=== PATIENT | female | born 2000 | race African-American/Black ===

== ENCOUNTER → 2023-01-27 14:05 | Outpatient (BNVA) | payer MEDICARE, BC, SELFPAY | PROVIDERS: Visit Provider Nurse Practitioner | DX: F90.9 Attention-deficit hyperactivity disorder, unspecified type (principal); F70 Mild intellectual disabilities; F06.30 Mood disorder due to known physiological condition, unspecified; F63.81 Intermittent explosive disorder | CPT/HCPCS: 80053; 80061; 80178; 81000; 84443; 85025 ==

== ENCOUNTER 2023-04-11 18:08 | Emergency (ER) | payer MEDICARE, OTHER, MEDICAID, SELFPAY ==
--- NOTE | 2023-04-11 18:46 | W.ED.PSYCHS ---
HPI - Psych General: Chief Complaint: Psychiatric Symptoms Stated Complaint: PSYCH EVAL Time Seen by Provider: 04/11/23 18:16 Source: patient Limitations: no limitations History of Present Illness: 22-year-old female has a history of intellectual disability lives at a correction she states that she got upset and ran away went to gas station please were called brought her here for psych eval I spoke to care staff and patient she is calm now she never had any suicidal or homicidal ideations she states she just got upset and ran away. Patient's been calm and cooperative here. 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, unspecified Nocturnal enuresis On Depo-Provera for contraception Surgical History No history of previous surgery Family History Father Cancer Mother Diabetes Hypertension Denies family history of Stroke Social History Smoking and tobacco status: never smoked Second hand smoke exposure: No Smoking risk assessment/counseling performed?: No Alcohol intake: never Desire information about alcohol rehabilitation?: No Counseling given: No Substance/Drug Use: never Desire information about substance/drug rehabilitation?: No Counseling given: No Adopted: No Caregiver/support person: Yes Lives independently: No Household members: caregiver Housing: House Marital status: Single Number of children: 0 Highest education level completed: High School Graduate service: No Current occupational status: disabled Pets and animals: Yes Pets & animal details: Chickens Current gender identity: Female Physical Exam Const: COMMON NORMALS: no acute distress HENMT: COMMON NORMALS: normocephalic and atraumatic HEAD & SCALP: normocephalic and atraumatic Eye: COMMON NORMALS: Equal, round and reactive pupils present and EOMs intact bilaterally PUPIL: Yes Equal, round and reactive pupils present Neck/C-Spine: COMMON NORMALS: full ROM and supple Chest: COMMONS NORMALS: normal inspection of the chest Resp: COMMON NORMALS: normal respiratory effort Cardio: COMMON NORMALS: regular rate, regular rhythm and No murmurs present (Cardio) RATE: regular rate RHYTHM: regular rhythm GI: COMMON NORMALS: Normal to inspection, nondistended, normoactive bowel sounds present, Soft to palpation, non-tender and no masses PALPATION: Yes Soft to palpation Extremity: COMMON NORMALS: normal to inspection and full ROM Neuro: COMMON NORMALS: moves all extremities and no focal motor deficits Psych: COMMON NORMALS: mental status grossly normal, Normal thought process present and cooperative THOUGHT PROCESS: Normal thought process present Skin: COMMON NORMALS: no rashes or lesions noted and no wounds GENERAL SKIN EXAM: no rashes or lesions noted Course Vital Signs: Vital signs: Vital Signs Pulse Rate 83 04/11/23 18:49 Respiratory Rate 18 04/11/23 18:49 Pulse Oximetry 99 04/11/23 18:49 Oxygen Delivery Me thod Room Air 04/11/23 18:49 MDM - Psych Medical Decision Making Patient presents here after she had ran away and spoke to the care Discharge Plan Discharge Patient Disposition: Home Clinical Impression: Outbursts of anger Condition: Stable Prescriptions: No Action icosapent ethyl [Vascepa] 1 gram capsule 2 g PO BID Qty: 120 5RF desmopressin 0.1 mg tablet 0.1 mg PO BEDTIME Qty: 30 2RF lithium carbonate 300 mg tablet 300 mg PO BID polyethylene glycol 3350 17 gram powder in packet 17 g PO DAILY propranolol 10 mg tablet 10 mg PO TID divalproex 500 mg tablet extended release 24 hr 500 mg PO BID levothyroxine 150 mcg tablet 150 mcg PO DAILY Qty: 30 5RF cetirizine 10 mg tablet 10 mg PO DAILY Qty: 30 5RF quetiapine 200 mg tablet 200 mg PO .at bedtime fluoxetine 40 mg capsule 40 mg PO .in AM desog-e.estradiol/e.estradiol [Mircette (28)] 0.15-0.02 mgx21 /0.01 mg x 5 tablet 1 tab PO .at bedtime Qty: 28 2RF Discharge Orders: Discharge ED (Routine); Ordered 04/11/23 Ordered By: Glenna Sanz Referrals: Raciel Astudillo, [employer]ELOPER[employer] [Primary Care Provider] - Discharge Diet: Advance as tolerated Discharge Activity: Resume usual activity Patient Instructions: Depression (ED) Coding Level of Care Code ED Veneer Puller for Rebeca Jaeger
[2023-04-11 18:49] VITALS: PULSE 83; RESP 18; O2SAT 99
[2023-04-11] MEDS: LORazepam 1 mg Tablet PO (19:18)
== END 2023-04-11 19:19 | disposition home or self-care (01) ==
PROVIDERS: Emergency Provider Emergency Medicine; PCP Nurse Practitioner
DX: R45.4 Irritability and anger (principal)
CPT/HCPCS: 99283

== ENCOUNTER → 2023-07-14 13:59 | Outpatient (BNVA) | payer MEDICARE, OTHER, MEDICAID, SELFPAY | PROVIDERS: PCP Nurse Practitioner; Visit Provider Nurse Practitioner | DX: E03.9 Hypothyroidism, unspecified (principal); E55.9 Vitamin D deficiency, unspecified; Z12.4 Encounter for screening for malignant neoplasm of cervix | CPT/HCPCS: 80053; 80061; 82306; 84443; 88175 ==

== ENCOUNTER → 2023-08-18 15:45 | Outpatient (BNVA) | payer MEDICARE, OTHER, MEDICAID, SELFPAY | PROVIDERS: PCP Nurse Practitioner; Visit Provider Nurse Practitioner | DX: F33.9 Major depressive disorder, recurrent, unspecified (principal); F06.30 Mood disorder due to known physiological condition, unspecified | CPT/HCPCS: 80164; 80178 ==

== ENCOUNTER 2023-11-16 12:34 | Inpatient (IN) | payer MEDICARE, MEDICAID, SELFPAY ==
[2023-11-16 12:37] VITALS: BMI 37.8
[2023-11-16 12:38] VITALS: BP 152/72; PULSE 66; RESP 16; TEMP 37.1; O2SAT 98
--- NOTE | 2023-11-16 12:44 | PC.NURSE ---
just rec'd patient in room
--- NOTE | 2023-11-16 12:51 | PC.PHAR ---
PT STATES SHE DID TAKE MEDICATION TODAY, SHE JUST HAS NO IDEA WHAT SHE TAKES. PHONED THE PHARMACY [facility] AND THEY VERIFIED ALL MEDICATIONS PT CURRENTLY TAKES. 11/16/23
[2023-11-16 12:52] LABS: Basophils % 0.2 %; Eosinophils # 0.1 10^3/uL (0.0-0.8); Eosinophils % 1.5 %; Hematocrit 39.2 % (36-47); Lymphocytes # 2.8 10^3/uL (0.8-4.8); Lymphocytes % 34.3 %; Mean Corpuscular HGB Conc 31.6 g/dL (30-55); Mean Corpuscular Hemoglobin 30.7 pg (27-33); Mean Platelet Volume 10.1 fL (7.4-10.4); Monocytes # 0.5 10^3/uL (0.2-0.9); Monocytes % 6.2 %; Neutrophils # 4.66 10^3/uL (1.8-7.7); Neutrophils % 57.4 %; Nucleated Red Blood Cells % 0 %; Platelet Count 245 10^3/cmm (157-399); Red Blood Count 4.04 10^6/uL (3.85-5.65); Red Cell Distribution Width 13.5 % (12.1-15.1); White Blood Count 8.11 10^3/uL (3.29-11.43)
[2023-11-16 13:15] LABS: Valproic Acid Level 67.8 ug/mL (50-100)
[2023-11-16 13:18] LABS: Lithium 1.4 mmol/L (0.6-1.2)
[2023-11-16 13:27] LABS: Acetaminophen < 5.0 ug/mL (10-30); Alanine Aminotransferase 7 U/L (0-33); Albumin Level 3.9 g/dL (3.5-5.2); Alcohol Level < 10 mg/dL (0-10); Alkaline Phosphatase 69 U/L (35-105); Aspartate Amino Transferase 13 U/L (0-32); Blood Urea Nitrogen 9 mg/dL (6-20); Calcium 10.1 mg/dL (8.5-10.5); Carbon Dioxide 24 mmol/L (22-29); Chloride 106 mmol/L (98-107); Creatinine Clr Calc Pharmacy 170.3066; Globulin 3.9 g/dL (1.3-4.6); Glomerular Filtration Rate 152.7 mL/min (90-130); Glucose 99 mg/dL (65-115); Osmolality Calculated 287 mOsm/kg (285-295); Salicylate < 0.3 mg/dL (3-10); Sodium 139 mmol/L (136-145); Thyroid Stimulating Hormone 1.85 uIU/mL (0.27-4.20); Total Bilirubin 0.2 mg/dL (0.15-1.2); Total Protein 7.8 g/dL (6.6-8.7)
[2023-11-16 13:39] LABS: Add Urine Culture? No; Add Urine Microscopic? YES; Bacteria Urine TRACE /hpf; Bilirubin Urine Neg (Negative); Blood Urine 3+ (Negative); Glucose Urine UA Norm (Normal); HCG Qualitative Urine. Negative (Negative); Ketones Urine Negative (Negative); Leukocyte Esterase Urine Negative (Negative); Nitrate Urine Negative (Negative); Protein Urine Neg (Negative); RBC Urine 0-4 /hpf (0-2); Specific Gravity, Urine 1.005 (1.005-1.030); Urine Appearance Clear (CLEAR); Urine Color Yellow (Yellow); Urobilinogen Urine Norm (Negative); WBC Urine 0-4 /hpf (0-5); pH Urine 7 (5-7)
[2023-11-16 13:40] LABS: Amphetamines Screen Urine Negative (Negative); Barbiturates Screen Urine Negative (Negative); Benzodiazepines Screen Urine Positive (Negative); Cocaine Screen Urine Negative (Negative); Opiate Screen Urine Negative (Negative); PCP Screen Urine Negative (Negative); THC Screen Urine Negative (Negative)
--- NOTE | 2023-11-16 13:55 | W.ED.PSYCHS ---
HPI - Psych General: Chief Complaint: Psychiatric Symptoms Stated Complaint: psych eval Time Seen by Provider: 11/16/23 12:35 History of Present Illness: Patient brought here by Seferino GONZALEZ for anger issues and wanting to harm other people. Patient states that someone in her facility was calling her slow and being mean to her and that she told him she wanted to hurt him or kill him. Patient is pleasant does not appear agitated or aggressive at this time. Upon talking to patient's caregiver he told the moderately different story that he did say that someone was picking on her and that she did say she wanted to hurt or kill him but then he went beyond that and said that she was not following the rules of the facility she went in his locker and the staff area and stole his lunch and then proceeded to elope and when he confronted her she was aggressive toward him and told him that he wanted to kill everybody and did not care if she herself and then she proceeded to go out in the middle of the road and sit down and was waiting to be run over. He said the vehicle leasing and rental manager there wanted her to be 96-hour held inpatient and treated. Patient is a resident of [facility] Review of Systems General: Reports: 10 or more systems reviewed and unremarkable except in HPI and below PFSH ED PFSH: Medical History Nocturnal enuresis Hypothyroid Mood disorder due to known physiological condition, unspecified Intermittent explosive disorder Mild intellectual disabilities On Depo-Provera for contraception Environmental and seasonal allergies ADHD (attention deficit hyperactivity disorder) Surgical History No history of previous surgery Family History Father Cancer Mother Diabetes Hypertension Denies family history of Stroke Social History Smoking and tobacco/nicotine status: never used tobacco/nicotine Second hand smoke exposure: No Alcohol intake: never Substance/Drug Use: never Adopted: No Caregiver/support person: Yes Lives independently: No Household members: caregiver Housing: House Marital status: Single Number of children: 0 Highest education level completed: High School Graduate service: No Current occupational status: disabled Pets and animals: Yes Pets & animal details: Chickens Current gender identity: Female Physical Exam Const: COMMON NORMALS: no acute distress, average body habitus, patient oriented x3, no limitations, healthy appearing, alert and well nourished HENMT: COMMON NORMALS: normocephalic, atraumatic, hearing grossly normal bilaterally, external ears normal, Normal external nose present, moist oral mucous membranes and oropharynx normal HEAD & SCALP: normocephalic and atraumatic NOSE: Normal external nose present EXTERNAL EAR: Yes external ears normal Neck/C-Spine: COMMON NORMALS: no JVD Chest: COMMONS NORMALS: normal inspection of the chest and normal palpation of entire chest wall Resp: COMMON NORMALS: normal respiratory effort, No retractions, No use of accessory muscles and clear to auscultation bilaterally AUSCULTATION: clear to auscultation bilaterally Cardio: COMMON NORMALS: no JVD, regular rate, regular rhythm, S1 normal heart sound present, S2 normal heart sound present, No gallops present (Cardio), No clicks present (Cardio), No murmurs present (Cardio) and No rub (Cardio) RATE: regular rate RHYTHM: regular rhythm HEART SOUNDS: S1 normal heart sound present and S2 normal heart sound present GI: COMMON NORMALS: Normal to inspection, nondistended, normoactive bowel sounds present, Soft to palpation, non-tender, No hepatosplenomegaly present and no masses PALPATION: Yes Soft to palpation and Yes No hepatosplenomegaly present Neuro: COMMON NORMALS: patient oriented x3 SENSORIUM/ORIENTATION: Yes alert Course Vital Signs: Vital signs: Vital Signs Temperature 98.7 F 11/16/23 12:38 Pulse Rate 66 11/16/23 12:38 Respiratory Rate 16 11/16/23 12:38 Blood Pressure 152/72 11/16/23 12:38 Pulse Oximetry 98 11/16/23 12:38 Oxygen Delivery Me thod Room Air 11/16/23 12:38 MDM - Psych Medical Decision Making Patient was cleared for medical process. Dr. Rodríguez was consulted. He agreed to place patient in [facility] for further evaluation and treatment. Differential Diagnosis Likely suicidal ideation (Homicidal ideation); Unlikely acute psychosis, chronic schizophrenia, bipolar disorder, depression, drug-induced psychotic disorder or acute anxiety Medical Records I reviewed the patient's medical records. Lab Data I reviewed the patient's lab results. 11/16/23 12:43 03/11/24 12:43 Laboratory Results WBC 8.11 10^3/uL (3.29-11.43) 11/16/23 12:43 RBC 4.04 10^6/uL (3.85-5.65) 11/16/23 12:43 Hgb 12.40 g/dL (11.27-16.99) 11/16/23 12:43 Hct 39.2 % (36-47) 11/16/23 12:43 MCV 97.0 fl (85-98) 11/16/23 12:43 MCH 30.7 pg (27-33) 11/16/23 12:43 MCHC 31.6 g/dL (30-55) 11/16/23 12:43 RDW 13.5 % (12.1-15.1) 11/16/23 12:43 Plt Count 245 10^3/cmm (157-399) 11/16/23 12:43 MPV 10.1 fL (7.4-10.4) 11/16/23 12:43 Neut % (Auto) 57.4 % 11/16/23 12:43 Lymph % (Auto) 34.3 % 11/16/23 12:43 Evangeline % (Auto) 6.2 % 11/16/23 12:43 Eos % (Auto) 1.5 % 11/16/23 12:43 Baso % (Auto) 0.2 % 11/16/23 12:43 Neut # (Auto) 4.66 10^3/uL (1.8-7.7) 11/16/23 12:43 Lymph # (Auto) 2.8 10^3/uL (0.8-4.8) 11/16/23 12:43 Evangeline # (Auto) 0.5 10^3/uL (0.2-0.9) 11/16/23 12:43 Eos # (Auto) 0.1 10^3/uL (0.0-0.8) 11/16/23 12:43 Baso # (Auto) 0.0 10^3/uL (0.0-0.1) 11/16/23 12:43 Nucleated RBC % (auto) 0 % 11/16/23 12:43 Nucleated RBCs # 0.0 /100WBC 11/16/23 12:43 Sodium 139 mmol/L (136-145) 11/16/23 12:43 Potassium 5.0 mmol/L (3.5-5.1) 11/16/23 12:43 Chloride 106 mmol/L (98-107) 11/16/23 12:43 Carbon Dioxide 24 mmol/L (22-29) 11/16/23 12:43 Anion Gap 14.0 (5-19) 11/16/23 12:43 BUN 9 mg/dL (6-20) 11/16/23 12:43 Creatinine 0.6 mg/dL (0.5-0.9) 11/16/23 12:43 GFR Calculation 152.7 mL/min (90-130) H 11/16/23 12:43 Glucose 99 mg/dL (65-115) 11/16/23 12:43 Calculated Osmolality 287 mOsm/kg (285-295) 11/16/23 12:43 Calcium 10.1 mg/dL (8.5-10.5) 11/16/23 12:43 Total Bilirubin 0.2 mg/dL (0.15-1.2) 11/16/23 12:43 AST 13 U/L (0-32) 11/16/23 12:43 ALT 7 U/L (0-33) 11/16/23 12:43 Alkaline Phosphatase 69 U/L (35-105) 11/16/23 12:43 Total Protein 7.8 g/dL (6.6-8.7) 11/16/23 12:43 Albumin 3.9 g/dL (3.5-5.2) 11/16/23 12:43 Globulin 3.9 g/dL (1.3-4.6) 11/16/23 12:43 TSH 1.85 uIU/mL (0.27-4.20) 11/16/23 12:43 HCG, Qual Negative (Negative) 11/16/23 13:10 Urine Color Yellow (Yellow) 11/16/23 13:10 Urine Appearance Clear (CLEAR) 11/16/23 13:10 Urine pH 7 (5-7) 11/16/23 13:10 Ur Specific [place] 1.005 (1.005-1.030) 11/16/23 13:10 Urine Protein Neg (Negative) 11/16/23 13:10 Urine Glucose (UA) Norm (Normal) 11/16/23 13:10 Urine Ketones Negative (Negative) 11/16/23 13:10 Urine Blood 3+ (Negative) H 11/16/23 13:10 Urine Nitrate Negative (Negative) 11/16/23 13:10 Urine Bilirubin Neg (Negative) 11/16/23 13:10 Urine Urobilinogen Norm mg/dL (Negative) 11/16/23 13:10 Ur Leukocyte Esterase Negative (Negative) 11/16/23 13:10 Urine RBC 0-4 /hpf (0-2) H 11/16/23 13:10 Urine WBC 0-4 /hpf (0-5) H 11/16/23 13:10 Ur Squamous Epith Cells 5-10 /hpf (0-5) H 11/16/23 13:10 Amorphous Sediment Not Reportable 11/16/23 13:10 Urine Bacteria Trace /hpf (NONE) 11/16/23 13:10 Salicylates < 0.3 mg/dL (3-10) L 11/16/23 12:43 Urine Opiates Screen Negative ng/mL (Negative) 11/16/23 13:10 Acetaminophen < 5.0 ug/mL (10-30) L 11/16/23 12:43 Ur Barbiturates Screen Negative ng/mL (Negative) 11/16/23 13:10 Valproic Acid 67.8 ug/mL (50-100) 11/16/23 12:43 Ur Phencyclidine Scrn Negative ng/mL (Negative) 11/16/23 13:10 Ur Amphetamines Screen Negative ng/mL (Negative) 11/16/23 13:10 U Benzodiazepines Scrn Positive ng/mL (Negative) H 11/16/23 13:10 [place] 1.4 mmol/L (0.6-1.2) H 11/16/23 12:43 Urine Cocaine Screen Negative ng/mL (Negative) 11/16/23 13:10 U Marijuana (THC) Screen Negative ng/mL (Negative) 11/16/23 13:10 Ethyl Alcohol < 10 mg/dL (0-10) 11/16/23 12:43 No radiology studies performed this visit Discharge Plan Discharge Patient Disposition: Admitted As Inpatient Clinical Impression: Intermittent explosive disorder in adult, Mild intellectual disability, Homicidal ideations Condition: Stable Coding Level of Care Code ED Breaker Unit Assembler for Chg Fwd
[2023-11-16 16:56] VITALS: BP 139/81; PULSE 68; RESP 16; TEMP 36.7; O2SAT 98
[2023-11-16 17:09] VITALS: BP 131/85; PULSE 63; RESP 16; TEMP 36.5; O2SAT 100
[2023-11-16 20:21] VITALS: BP 128/81; PULSE 75; RESP 18; TEMP 36.8; O2SAT 96
[2023-11-16] MEDS: lithium carbonate 300 mg Capsule PO (21:36)
[2023-11-16] MEDS: quetiapine 100 mg Tablet 200 MG PO (21:36)
[2023-11-16] MEDS: divalproex ER 500 mg Tablet (24H) PO (21:36)
[2023-11-16] MEDS: propranolol 20 mg Tablet 10 MG PO (21:36)
[2023-11-17 06:00] VITALS: BP 115/74; PULSE 60; RESP 18; TEMP 36.3; O2SAT 100
[2023-11-17] MEDS: levothyroxine 150 mcg Tablet PO (08:25)
[2023-11-17] MEDS: propranolol 20 mg Tablet 10 MG PO ×3 (08:25→19:53)
[2023-11-17] MEDS: divalproex ER 500 mg Tablet (24H) PO ×2 (08:25→17:53)
[2023-11-17] MEDS: fluoxetine 20 mg Capsule 40 MG PO (08:26)
[2023-11-17] MEDS: docusate sodium 100 mg Capsule PO ×2 (08:26→17:53)
[2023-11-17] MEDS: cetirizine 10 mg Tablet PO (08:26)
[2023-11-17 10:40] LABS: Lithium 0.9 mmol/L (0.6-1.2)
[2023-11-17] MEDS: lithium carbonate 300 mg Capsule PO ×2 (11:09→17:53)
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
[2023-11-17 14:00] VITALS: BP 119/76; PULSE 72; RESP 16; TEMP 36.6; O2SAT 99
[2023-11-17] MEDS: quetiapine 100 mg Tablet 200 MG PO (19:54)
[2023-11-17 20:04] VITALS: BP 152/94; PULSE 76; RESP 18; TEMP 36.8; O2SAT 97
--- NOTE | 2023-11-18 06:51 | PC.NURSE ---
pt ref vs resp 18
[2023-11-18] MEDS: propranolol 20 mg Tablet 10 MG PO (07:50)
[2023-11-18] MEDS: docusate sodium 100 mg Capsule PO (07:50)
[2023-11-18] MEDS: levothyroxine 150 mcg Tablet PO (07:50)
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
[2023-11-18] MEDS: divalproex ER 500 mg Tablet (24H) PO (07:51)
[2023-11-18] MEDS: cetirizine 10 mg Tablet PO (07:51)
[2023-11-18] MEDS: fluoxetine 20 mg Capsule 40 MG PO (07:51)
[2023-11-18] MEDS: lithium carbonate 300 mg Capsule PO (07:51)
[2023-11-18 07:56] VITALS: BP 152/94; PULSE 76; RESP 18; TEMP 36.8; O2SAT 97
--- NOTE | 2023-11-18 08:22 | PC.NURSE ---
written discharge instruction discussed and left with teamleader Nelson they stated understanding and compliance. pt left in pov with ximena alatorre staff members.
== END 2023-11-18 08:25 | disposition home or self-care (01) | DRG 883 ==
LOC: ER 14:26 → NP 16:28
PROVIDERS: Admitting Provider Psychiatry & Neurology Psychiatry; Emergency Provider Emergency Medicine; PCP Nurse Practitioner; Visit Provider Psychiatry & Neurology Psychiatry
DX: F63.81 Intermittent explosive disorder (principal); F70 Mild intellectual disabilities; E03.9 Hypothyroidism, unspecified; F90.9 Attention-deficit hyperactivity disorder, unspecified type; E66.9 Obesity, unspecified; R45.850 Homicidal ideations; F06.30 Mood disorder due to known physiological condition, unspecified; N39.44 Nocturnal enuresis; Z79.3 Long term (current) use of hormonal contraceptives; Z68.37 Body mass index [BMI] 37.0-37.9, adult
CPT/HCPCS: 36415; 80053; 80164; 80178; 80306; 80307; 81001; 81025; 84443; 85025; 97150; 97165; 99285

== ENCOUNTER 2023-12-07 18:09 | Inpatient (IN) | payer MEDICARE, MEDICAID, SELFPAY ==
[2023-12-07 18:10] VITALS: BP 135/59; PULSE 73; TEMP 36.7; O2SAT 96
--- NOTE | 2023-12-07 18:28 | W.ED.PSYCHS ---
HPI - Psych General: Chief Complaint: Psychiatric Symptoms Stated Complaint: si/hi Time Seen by Provider: 12/07/23 18:11 Source: patient Mode of arrival: ambulatory Limitations: no limitations History of Present Illness: 23-year-old female who lives at a [facility] states she want to go to [facility] today and went to take her and she got upset. She had thoughts of hurting someone but states she feels much improved she denies any SI or HI currently she was admitted here 3 weeks ago. She has been calm and cooperative Associated symptoms: Deny depression Review of Systems Const: Denies: fever(s), chills, body aches or change in appetite Eyes: Denies: blurry vision or eye discomfort ENMT: Denies: throat pain or dental pain Card: Denies: chest pain Resp: Denies: dyspnea GI: Denies: abdominal pain, nausea, vomiting or diarrhea : Denies: dysuria Musc: Denies: neck pain or back pain Skin/Breast: Denies: rash Neuro: Denies: headache(s) Psych: Denies: depression Kai/Lymph: Denies: easy bruising All/Imm: Denies: urticaria PFSH ED PFSH: Medical History Nocturnal enuresis Hypothyroid Mood disorder due to known physiological condition, unspecified Intermittent explosive disorder Mild intellectual disabilities On Depo-Provera for contraception Environmental and seasonal allergies ADHD (attention deficit hyperactivity disorder) Surgical History No history of previous surgery Family History Father Cancer Mother Diabetes Hypertension Denies family history of Stroke Social History Smoking and tobacco/nicotine status: never used tobacco/nicotine Second hand smoke exposure: No Alcohol intake: never Substance/Drug Use: never Adopted: No Caregiver/support person: Yes Lives independently: No Household members: caregiver Housing: House Marital status: Single Number of children: 0 Highest education level completed: High School Graduate service: No Current occupational status: disabled Pets and animals: Yes Pets & animal details: Chickens Current gender identity: Female Physical Exam Const: COMMON NORMALS: no acute distress, patient oriented x3 and healthy appearing HENMT: COMMON NORMALS: normocephalic and atraumatic HEAD & SCALP: normocephalic and atraumatic Eye: COMMON NORMALS: conjunctivae normal CONJUNCTIVA: Yes conjunctivae normal Neck/C-Spine: COMMON NORMALS: full ROM and supple Chest: COMMONS NORMALS: normal inspection of the chest Resp: COMMON NORMALS: normal respiratory effort Cardio: COMMON NORMALS: regular rate, regular rhythm and No murmurs present (Cardio) RATE: regular rate RHYTHM: regular rhythm Extremity: COMMON NORMALS: normal to inspection and full ROM Neuro: COMMON NORMALS: patient oriented x3, moves all extremities and no focal motor deficits Psych: COMMON NORMALS: mental status grossly normal, Normal thought process present and cooperative THOUGHT PROCESS: Normal thought process present Skin: COMMON NORMALS: no rashes or lesions noted and no wounds GENERAL SKIN EXAM: no rashes or lesions noted Course Vital Signs: Vital signs: Vital Signs Temperature 98.0 F 12/07/23 18:10 Pulse Rate 73 12/07/23 18:10 Blood Pressure 135/59 12/07/23 18:10 Pulse Oximetry 96 12/07/23 18:10 Oxygen Delivery Me thod Room Air 12/07/23 18:10 MDM - Psych Medical Decision Making Patient presents here with anger outburst she is also had some depression and I did speak to Dr. Rodríguez will readmit at this time patient is medically cleared. Medical Records I reviewed the patient's medical records. No radiology studies performed this visit Discharge Plan Discharge Patient Disposition: Admitted As Inpatient Clinical Impression: Intermittent explosive disorder, Mild intellectual disability, Depression Condition: Stable Prescriptions: No Action lithium carbonate 300 mg tablet 300 mg PO BID propranolol 10 mg tablet 10 mg PO TID divalproex 500 mg tablet extended release 24 hr 500 mg PO BID quetiapine 200 mg tablet 200 mg PO .at bedtime fluoxetine 40 mg capsule 40 mg PO QAM cetirizine 10 mg tablet 10 mg PO DAILY Qty: 30 2RF desmopressin 0.2 mg tablet 0.2 mg PO BEDTIME Qty: 30 2RF desog-e.estradiol/e.estradiol 0.15-0.02 mgx21 /0.01 mg x 5 tablet 1 tab PO .at bedtime Qty: 28 2RF docusate sodium [Colace] 100 mg capsule 100 mg PO BID Qty: 60 2RF icosapent ethyl [Vascepa] 1 gram capsule 2 g PO BID Qty: 120 2RF levothyroxine 150 mcg tablet 150 mcg PO DAILY Qty: 30 2RF Discharge Orders: Discharge ED (Routine); Ordered 12/07/23 Ordered By: Glenna Sanz Referrals: Raciel Astudillo, RESHIPPING CLERK-C [Primary Care Provider] - 4-7 days Discharge Diet: Advance as tolerated Discharge Activity: Resume usual activity Patient Instructions: Depression (ED) Coding Level of Care Code ED Quality Improvement Coordinator (Rn) for Rebeca Jaeger
[2023-12-07] MEDS: LORazepam 1 mg Tablet PO (18:41)
[2023-12-07 19:11] LABS: Basophils % 0.3 %; Eosinophils # 0.3 10^3/uL (0.0-0.8); Eosinophils % 2.5 %; Hematocrit 37.5 % (36-47); Lymphocytes % 38.9 %; Mean Corpuscular HGB Conc 31.5 g/dL (30-55); Mean Corpuscular Hemoglobin 30.3 pg (27-33); Mean Corpuscular Volume 96.2 fl (85-98); Mean Platelet Volume 10.3 fL (7.4-10.4); Monocytes # 0.8 10^3/uL (0.2-0.9); Monocytes % 7.5 %; Neutrophils # 5.11 10^3/uL (1.8-7.7); Nucleated Red Blood Cells % 0 %; Platelet Count 265 10^3/cmm (157-399); Red Cell Distribution Width 13.5 % (12.1-15.1); White Blood Count 10.23 10^3/uL (3.29-11.43)
[2023-12-07 19:27] LABS: Alanine Aminotransferase < 5 U/L (0-33); Albumin Level 3.9 g/dL (3.5-5.2); Alkaline Phosphatase 71 U/L (35-105); Anion Gap 14.8 (5-19); Aspartate Amino Transferase 13 U/L (0-32); Blood Urea Nitrogen 10 mg/dL (6-20); Carbon Dioxide 22 mmol/L (22-29); Chloride 106 mmol/L (98-107); Globulin 3.7 g/dL (1.3-4.6); Glomerular Filtration Rate 152.7 mL/min (90-130); Glucose 98 mg/dL (65-115); Osmolality Calculated 287 mOsm/kg (285-295); Potassium 3.8 mmol/L (3.5-5.1); Sodium 139 mmol/L (136-145); Total Bilirubin 0.2 mg/dL (0.15-1.2); Total Protein 7.6 g/dL (6.6-8.7)
[2023-12-07 19:28] LABS: Acetaminophen < 5.0 ug/mL (10-30); Alcohol Level < 10 mg/dL (0-10); Salicylate < 0.3 mg/dL (3-10)
[2023-12-07 19:34] VITALS: BP 133/73; PULSE 70; RESP 17; TEMP 36.6; O2SAT 99
[2023-12-07 19:43] VITALS: PULSE 78; RESP 18; O2SAT 98
[2023-12-07 20:02] LABS: Amphetamines Screen Urine Negative (Negative); Barbiturates Screen Urine Negative (Negative); Benzodiazepines Screen Urine Positive (Negative); Cocaine Screen Urine Negative (Negative); Opiate Screen Urine Negative (Negative); PCP Screen Urine Negative (Negative); THC Screen Urine Negative (Negative)
[2023-12-07] MEDS: quetiapine 100 mg Tablet 200 MG PO (20:22)
[2023-12-07] MEDS: propranolol 20 mg Tablet 10 MG PO (20:22)
--- NOTE | 2023-12-07 20:40 | PC.NURSE ---
Admission Note pt arrived to [facility] at 1930 on a voluntary hold. Pt states that she is here because she was feeling suicidal and wrote a suicide note. She stated that he plan was to cut her wrists with a knife. Pt was not able to say why she was feeling this way but just stated that she has been feeling suicidal for a couple months. Upon admission pt denied SI/HI/AVH. Pt was dressed into [facility] scrubs, no skins issues noted. Pt is now observed watching TV in the [facility] dayroom. Behavioral monitoring continues
[2023-12-07 20:46] LABS: HCG Qualitative Urine. Negative (Negative)
[2023-12-07 22:00] VITALS: BP 133/73; PULSE 70; RESP 17; TEMP 36.6; O2SAT 99
[2023-12-08 06:00] VITALS: BP 129/78; PULSE 61; RESP 16; TEMP 36.6; O2SAT 97
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
[2023-12-08] MEDS: docusate sodium 100 mg Capsule PO ×2 (08:02→17:04)
[2023-12-08] MEDS: cetirizine 10 mg Tablet PO (08:02)
[2023-12-08] MEDS: lithium carbonate 150 mg Capsule 300 MG PO ×2 (08:02→17:03)
[2023-12-08] MEDS: propranolol 20 mg Tablet 10 MG PO ×3 (08:02→20:28)
[2023-12-08] MEDS: levothyroxine 150 mcg Tablet PO (08:02)
[2023-12-08] MEDS: divalproex ER 500 mg Tablet (24H) PO ×2 (08:02→17:03)
[2023-12-08] MEDS: fluoxetine 20 mg Capsule 40 MG PO (08:02)
--- NOTE | 2023-12-08 09:48 | PC.NURSE ---
AT AROUND 0900 STAFF PERFORMED RANDOM ROOM CHECKS FOR CONTRABAND. DURING THIS RANDOM CHECK NO CONTRABAND WAS FOUND IN PT ROOM. PT WAS COOPERATIVE WITH CHECK.
[2023-12-08 14:00] VITALS: BP 130/80; PULSE 80; RESP 16; TEMP 36.6; O2SAT 98
[2023-12-08 20:10] VITALS: BP 123/67; PULSE 72; RESP 16; O2SAT 100
[2023-12-08] MEDS: quetiapine 100 mg Tablet 200 MG PO (20:28)
[2023-12-09 06:00] VITALS: BP 147/98; PULSE 77; RESP 17; TEMP 36.7; O2SAT 100
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
[2023-12-09 07:43] VITALS: BP 147/98; PULSE 77; RESP 17; TEMP 36.7; O2SAT 100
[2023-12-09] MEDS: cetirizine 10 mg Tablet PO (08:08)
[2023-12-09] MEDS: propranolol 20 mg Tablet 10 MG PO (08:08)
[2023-12-09] MEDS: levothyroxine 150 mcg Tablet PO (08:09)
[2023-12-09] MEDS: divalproex ER 500 mg Tablet (24H) PO (08:09)
[2023-12-09] MEDS: lithium carbonate 150 mg Capsule 300 MG PO (08:09)
[2023-12-09] MEDS: docusate sodium 100 mg Capsule PO (08:09)
[2023-12-09] MEDS: fluoxetine 20 mg Capsule 40 MG PO (08:09)
== END 2023-12-09 08:36 | disposition home or self-care (01) | DRG 883 ==
LOC: ER 18:59 → NP 19:02
PROVIDERS: Admitting Provider Psychiatry & Neurology Psychiatry; Emergency Provider Emergency Medicine; PCP Nurse Practitioner; Visit Provider Psychiatry & Neurology Psychiatry
DX: F63.81 Intermittent explosive disorder (principal); F70 Mild intellectual disabilities; F90.9 Attention-deficit hyperactivity disorder, unspecified type; E03.9 Hypothyroidism, unspecified
CPT/HCPCS: 36415; 80053; 80306; 80307; 81025; 85025; 97150; 97165; 99285

== ENCOUNTER 2023-12-13 16:52 | Inpatient (IN) | payer MEDICARE, OTHER, MEDICAID, SELFPAY ==
[2023-12-13 16:59] VITALS: BMI 40.2
[2023-12-13 17:01] VITALS: BP 137/90; PULSE 76; RESP 16; TEMP 36.6; O2SAT 98
--- NOTE | 2023-12-13 17:12 | W.ED.PSYCHS ---
HPI - Psych General: Chief Complaint: Psychiatric Symptoms Stated Complaint: MHE Time Seen by Provider: 12/13/23 17:00 History of Present Illness: 23-year-old female presents to the emergency department via EMS personnel with complaints of feeling severely depressed and wanting to cause herself harm by cutting her wrist with pieces of glass. Patient states she was recently admitted to the behavioral health unit and was discharged on 12/10/23. Patient states that she is continued to have thoughts of harming herself and committing suicide by cutting her wrist. Patient did have several superficial cuts to her left forearm that she states came from using a small piece of glass because she feels that cutting herself keeps her from becoming more depressed. She states that today when she woke up she continued to have more intrusive thoughts of suicidal ideation and could not get the thoughts to go away which prompted her to call EMS. Patient does appear to have developmentally delayed cognition. Associated symptoms: Reports depression and suicidal ideation; Deny auditory hallucinations, visual hallucinations or homicidal ideation Review of Systems General: Reports: 10 or more systems reviewed and unremarkable except in HPI and below Skin/Breast: Reports: other (Superficial abrasions to the left forearm) Psych: Reports: depression and suicidal ideation; Denies: visual hallucinations, auditory hallucinations or homicidal ideation [facility] PFSH: Medical History Nocturnal enuresis Hypothyroid Mood disorder due to known physiological condition, unspecified Intermittent explosive disorder Mild intellectual disabilities On Depo-Provera for contraception Environmental and seasonal allergies ADHD (attention deficit hyperactivity disorder) Surgical History No history of previous surgery Family History Father Cancer Mother Diabetes Hypertension Denies family history of Stroke Social History Smoking and tobacco/nicotine status: never used tobacco/nicotine Second hand smoke exposure: No Alcohol intake: never Substance/Drug Use: never Adopted: No Caregiver/support person: Yes Lives independently: No Household members: caregiver Housing: House Marital status: Single Number of children: 0 Highest education level completed: High School Graduate service: No Current occupational status: disabled Pets and animals: Yes Pets & animal details: Chickens Current gender identity: Female Physical Exam Narrative: EXAM NARRATIVE: Constitutional: the patient appears well nourished and of normal development. Vital signs as documented. No acute distress at present. Alert and oriented-to person, place, time and situation. Head, eyes, ears, nose, mouth, throat: Normocephalic, atraumatic. Pupils-equal, round, reactive to light. No scleral icterus. Normal-appearing external ears. Normal appearing nasal turbinates, no drainage. No obvious oral lesions, posterior oropharynx without erythema or exudates. Neck: Supple, trachea is midline, no lymphadenopathy, no jugular venous distension, thyromegaly, or carotid bruits. Carotid upstrokes are brisk bilaterally. Lungs: clear to auscultation to all lung bullock. Symmetrical rise and fall of chest, no obvious signs of increased work of breathing at present. Cardiac: Regular rate and rhythm, positive S1, S2. No murmurs, rubs or gallops that I can appreciate Abdomen: Soft, non-tender to palpation, normal active bowel sounds to all quadrants. No palpable masses, no organomegaly and abdominal bruits. Extremities: 2+ pulses in the upper extremities that are equal bilaterally, 2+ pulses in the lower extremities that are equal bilaterally. Non-edematous. Moves all extremities well, sensation to all extremities are noted. Abrasions to the left forearm as noted. Skin: Warm, dry, multiple superficial abrasions to the left forearm. Neurological: Neurologically intact, she does appear to have cognitive developmental delay. No focal neurological deficits that I can appreciate at present cranial nerves II through XII are grossly intact. Psychiatric: Suicidal ideation, depression, Course Vital Signs: Vital signs: Vital Signs Temperature 97.7 F 12/13/23 20:21 Pulse Rate 68 12/13/23 20:21 Respiratory Rate 18 12/13/23 20:21 Blood Pressure 123/80 12/13/23 20:21 Pulse Oximetry 99 12/13/23 20:21 Oxygen Delivery Me thod Room Air 12/13/23 20:21 MDM - Psych Medical Decision Making Physical exam completed and documented I did obtain medical psychiatric clearance labs to include CBC, CMP, urinalysis, alcohol level, urine drug screen, salicylate and acetaminophen level as well as urine hCG. I did review the patient's previous medical records and recent discharge summary. I did contact the psychiatrist on-call to discuss the patient's case and request admission to the Neuropsych Unit. Medical Records I reviewed the patient's medical records. Lab Data I reviewed the patient's lab results. 12/13/23 17:55 12/13/23 17:55 Laboratory Results WBC 10.94 10^3/uL (3.29-11.43) 12/13/23 17:55 RBC 4.21 10^6/uL (3.85-5.65) 12/13/23 17:55 Hgb 12.70 g/dL (11.27-16.99) 12/13/23 17:55 Hct 40.4 % (36-47) 12/13/23 17:55 MCV 96.0 fl (85-98) 12/13/23 17:55 MCH 30.2 pg (27-33) 12/13/23 17:55 MCHC 31.4 g/dL (30-55) 12/13/23 17:55 RDW 13.7 % (12.1-15.1) 12/13/23 17:55 Plt Count 245 10^3/cmm (157-399) 12/13/23 17:55 MPV 10.7 fL (7.4-10.4) H 12/13/23 17:55 Neut % (Auto) 51.0 % 12/13/23 17:55 Lymph % (Auto) 38.8 % 12/13/23 17:55 Mcnairy % (Auto) 7.5 % 12/13/23 17:55 Eos % (Auto) 1.8 % 12/13/23 17:55 Baso % (Auto) 0.3 % 12/13/23 17:55 Neut # (Auto) 5.57 10^3/uL (1.8-7.7) 12/13/23 17:55 Lymph # (Auto) 4.3 10^3/uL (0.8-4.8) 12/13/23 17:55 Mcnairy # (Auto) 0.8 10^3/uL (0.2-0.9) 12/13/23 17:55 Eos # (Auto) 0.2 10^3/uL (0.0-0.8) 12/13/23 17:55 Baso # (Auto) 0.0 10^3/uL (0.0-0.1) 12/13/23 17:55 Nucleated RBC % (auto) 0 % 12/13/23 17:55 Nucleated RBCs # 0.0 /100WBC 12/13/23 17:55 Sodium 136 mmol/L (136-145) 12/13/23 17:55 Potassium 4.3 mmol/L (3.5-5.1) 12/13/23 17:55 Chloride 104 mmol/L (98-107) 12/13/23 17:55 Carbon Dioxide 22 mmol/L (22-29) 12/13/23 17:55 Anion Gap 14.3 (5-19) 12/13/23 17:55 BUN 9 mg/dL (6-20) 12/13/23 17:55 Creatinine 0.6 mg/dL (0.5-0.9) 12/13/23 17:55 GFR Calculation 152.7 mL/min (90-130) H 12/13/23 17:55 Glucose 93 mg/dL (65-115) 12/13/23 17:55 Calculated Osmolality 280 mOsm/kg (285-295) L 12/13/23 17:55 Calcium 10.3 mg/dL (8.5-10.5) 12/13/23 17:55 Total Bilirubin 0.2 mg/dL (0.15-1.2) 12/13/23 17:55 AST 11 U/L (0-32) 12/13/23 17:55 ALT 6 U/L (0-33) 12/13/23 17:55 Alkaline Phosphatase 79 U/L (35-105) 12/13/23 17:55 Total Protein 7.5 g/dL (6.6-8.7) 12/13/23 17:55 Albumin 3.9 g/dL (3.5-5.2) 12/13/23 17:55 Globulin 3.6 g/dL (1.3-4.6) 12/13/23 17:55 HCG, Qual Negative (Negative) 12/13/23 17:22 Urine Color Yellow (Yellow) 12/13/23 17:22 Urine Appearance Clear (CLEAR) 12/13/23 17:22 Urine pH 7 (5-7) 12/13/23 17:22 Ur Specific Rewey 1.005 (1.005-1.030) 12/13/23 17:22 Urine Protein Neg (Negative) 12/13/23 17:22 Urine Glucose (UA) Norm (Normal) 12/13/23 17:22 Urine Ketones 1+ (Negative) H 12/13/23 17:22 Urine Blood Neg (Negative) 12/13/23 17:22 Urine Nitrate Negative (Negative) 12/13/23 17:22 Urine Bilirubin Neg (Negative) 12/13/23 17:22 Urine Urobilinogen Norm mg/dL (Negative) 12/13/23 17:22 Ur Leukocyte Esterase Negative (Negative) 12/13/23 17:22 Salicylates < 0.3 mg/dL (3-10) L 12/13/23 17:55 Urine Opiates Screen Negative ng/mL (Negative) 12/13/23 17:22 Acetaminophen < 5.0 ug/mL (10-30) L 12/13/23 17:55 Ur Barbiturates Screen Negative ng/mL (Negative) 12/13/23 17:22 Ur Phencyclidine Scrn Negative ng/mL (Negative) 12/13/23 17:22 Ur Amphetamines Screen Negative ng/mL (Negative) 12/13/23 17:22 U Benzodiazepines Scrn Positive ng/mL (Negative) H 12/13/23 17:22 Urine Cocaine Screen Negative ng/mL (Negative) 12/13/23 17:22 U Marijuana (THC) Screen Negative ng/mL (Negative) 12/13/23 17:22 Ethyl Alcohol < 10 mg/dL (0-10) 12/13/23 17:55 No radiology studies performed this visit Discharge Plan Discharge Patient Disposition: Admitted As Inpatient Admit Provider: Basim Rodríguez Clinical Impression: Suicidal ideation, Depression Condition: Stable Coding Level of Care Code ED Hydrometer Calibrator for Rebeca Jaeger
[2023-12-13 17:26] LABS: Add Urine Microscopic? NO; Charge for UA Resulting for Rev
[2023-12-13 17:30] LABS: Bilirubin Urine Neg (Negative); Blood Urine Neg (Negative); Glucose Urine UA Norm (Normal); HCG Qualitative Urine. Negative (Negative); Ketones Urine 1+ (Negative); Leukocyte Esterase Urine Negative (Negative); Nitrate Urine Negative (Negative); Protein Urine Neg (Negative); Specific Gravity, Urine 1.005 (1.005-1.030); Urine Appearance Clear (CLEAR); Urine Color Yellow (Yellow); Urobilinogen Urine Norm (Negative); pH Urine 7 (5-7)
[2023-12-13 17:38] LABS: Amphetamines Screen Urine Negative (Negative); Barbiturates Screen Urine Negative (Negative); Benzodiazepines Screen Urine Positive (Negative); Cocaine Screen Urine Negative (Negative); Opiate Screen Urine Negative (Negative); PCP Screen Urine Negative (Negative); THC Screen Urine Negative (Negative)
[2023-12-13 18:03] LABS: Basophils % 0.3 %; Eosinophils # 0.2 10^3/uL (0.0-0.8); Eosinophils % 1.8 %; Hematocrit 40.4 % (36-47); Lymphocytes # 4.3 10^3/uL (0.8-4.8); Lymphocytes % 38.8 %; Mean Corpuscular HGB Conc 31.4 g/dL (30-55); Mean Corpuscular Hemoglobin 30.2 pg (27-33); Mean Platelet Volume 10.7 fL (7.4-10.4); Monocytes # 0.8 10^3/uL (0.2-0.9); Monocytes % 7.5 %; Neutrophils # 5.57 10^3/uL (1.8-7.7); Nucleated Red Blood Cells % 0 %; Platelet Count 245 10^3/cmm (157-399); Red Blood Count 4.21 10^6/uL (3.85-5.65); Red Cell Distribution Width 13.7 % (12.1-15.1); White Blood Count 10.94 10^3/uL (3.29-11.43)
[2023-12-13 18:22] LABS: Alanine Aminotransferase 6 U/L (0-33); Albumin Level 3.9 g/dL (3.5-5.2); Alkaline Phosphatase 79 U/L (35-105); Anion Gap 14.3 (5-19); Aspartate Amino Transferase 11 U/L (0-32); Blood Urea Nitrogen 9 mg/dL (6-20); Calcium 10.3 mg/dL (8.5-10.5); Carbon Dioxide 22 mmol/L (22-29); Chloride 104 mmol/L (98-107); Creatinine Clr Calc Pharmacy 163.8443; Globulin 3.6 g/dL (1.3-4.6); Glomerular Filtration Rate 152.7 mL/min (90-130); Glucose 93 mg/dL (65-115); Osmolality Calculated 280 mOsm/kg (285-295); Potassium 4.3 mmol/L (3.5-5.1); Sodium 136 mmol/L (136-145); Total Bilirubin 0.2 mg/dL (0.15-1.2); Total Protein 7.5 g/dL (6.6-8.7)
[2023-12-13 18:23] LABS: Acetaminophen < 5.0 ug/mL (10-30); Alcohol Level < 10 mg/dL (0-10); Salicylate < 0.3 mg/dL (3-10)
[2023-12-13 19:30] VITALS: BP 123/80; PULSE 68; RESP 18; TEMP 36.5; O2SAT 99
[2023-12-13 19:46] VITALS: BP 137/90; PULSE 76; RESP 16; TEMP 36.6; O2SAT 98
[2023-12-13 20:21] VITALS: BP 123/80; PULSE 68; RESP 18; TEMP 36.5; O2SAT 99
[2023-12-13] MEDS: quetiapine 100 mg Tablet 200 MG PO (20:29)
[2023-12-13] MEDS: propranolol 20 mg Tablet 10 MG PO (20:30)
[2023-12-13] MEDS: divalproex ER 500 mg Tablet (24H) PO (20:30)
[2023-12-13] MEDS: lithium carbonate 300 mg Capsule PO (20:33)
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
[2023-12-14 06:00] VITALS: BP 128/82; PULSE 84; RESP 17; TEMP 36.7; O2SAT 98
[2023-12-14] MEDS: divalproex ER 500 mg Tablet (24H) PO ×2 (08:21→17:00)
[2023-12-14] MEDS: propranolol 20 mg Tablet 10 MG PO ×3 (08:22→19:47)
[2023-12-14] MEDS: fluoxetine 20 mg Capsule 40 MG PO (08:22)
[2023-12-14] MEDS: levothyroxine 150 mcg Tablet PO (08:22)
[2023-12-14] MEDS: docusate sodium 100 mg Capsule PO ×2 (08:22→17:00)
[2023-12-14] MEDS: lithium carbonate 300 mg Capsule PO ×2 (08:22→17:00)
[2023-12-14] MEDS: cetirizine 10 mg Tablet PO (08:22)
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
[2023-12-14 14:00] VITALS: BP 125/85; PULSE 85; RESP 16; TEMP 36.7; O2SAT 98
[2023-12-14] MEDS: neomycin-poly-bacitracin oint 28 gm 1 APPLIC TOPICAL ×2 (15:02→17:20)
[2023-12-14] MEDS: quetiapine 100 mg Tablet 200 MG PO (19:47)
[2023-12-14 20:37] VITALS: BP 132/77; PULSE 79; RESP 18; TEMP 36.4; O2SAT 100
[2023-12-15 06:00] VITALS: BP 143/84; PULSE 82; RESP 18; TEMP 37.3; O2SAT 97
[2023-12-15] MEDS: fluoxetine 20 mg Capsule 40 MG PO (09:56)
[2023-12-15] MEDS: cetirizine 10 mg Tablet PO (09:57)
[2023-12-15] MEDS: docusate sodium 100 mg Capsule PO (09:57)
[2023-12-15] MEDS: levothyroxine 150 mcg Tablet PO (09:57)
[2023-12-15] MEDS: propranolol 20 mg Tablet 10 MG PO (09:57)
[2023-12-15] MEDS: divalproex ER 500 mg Tablet (24H) PO (09:57)
[2023-12-15] MEDS: lithium carbonate 300 mg Capsule PO (09:57)
[2023-12-15] MEDS: neomycin-poly-bacitracin oint 28 gm 1 APPLIC TOPICAL (09:58)
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
[2023-12-15 14:00] VITALS: BP 117/67; PULSE 63; RESP 16; TEMP 36.6; O2SAT 98
[2023-12-15 14:50] VITALS: BP 117/67; PULSE 63; RESP 16; TEMP 36.6; O2SAT 98
== END 2023-12-15 15:38 | disposition home or self-care (01) | DRG 881 ==
LOC: ER 19:12 → NP 19:35
PROVIDERS: Admitting Provider Psychiatry & Neurology Psychiatry; Emergency Provider Internal Medicine; PCP Nurse Practitioner; Visit Provider Psychiatry & Neurology Psychiatry
DX: F32.A Depression, unspecified (principal); R45.851 Suicidal ideations; R45.88 Nonsuicidal self-harm; F70 Mild intellectual disabilities; F63.81 Intermittent explosive disorder; F90.9 Attention-deficit hyperactivity disorder, unspecified type; E03.9 Hypothyroidism, unspecified
CPT/HCPCS: 36415; 80053; 80306; 80307; 81003; 81025; 85025; 97150; 97165; 99285

== ENCOUNTER 2023-12-29 10:25 | Inpatient (IN) | payer MEDICARE, OTHER, MEDICAID, SELFPAY ==
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
[2023-12-29 10:29] VITALS: BP 131/80; PULSE 74; RESP 15; TEMP 36.9; O2SAT 97
--- NOTE | 2023-12-29 11:05 | PC.PHAR ---
pt is from [facility]-medications entered are from the pts mar and tar that the caregiver brought in
[2023-12-29 11:33] LABS: Basophils % 0.3 %; Eosinophils # 0.2 10^3/uL (0.0-0.8); Eosinophils % 1.9 %; Hematocrit 39.5 % (36-47); Lymphocytes % 38.3 %; Mean Corpuscular HGB Conc 31.1 g/dL (30-55); Mean Corpuscular Hemoglobin 30.1 pg (27-33); Mean Corpuscular Volume 96.8 fl (85-98); Mean Platelet Volume 10.6 fL (7.4-10.4); Monocytes # 0.6 10^3/uL (0.2-0.9); Monocytes % 7.9 %; Neutrophils # 3.98 10^3/uL (1.8-7.7); Neutrophils % 50.8 %; Nucleated Red Blood Cells % 0 %; Platelet Count 188 10^3/cmm (157-399); Red Blood Count 4.08 10^6/uL (3.85-5.65); Red Cell Distribution Width 13.5 % (12.1-15.1); White Blood Count 7.83 10^3/uL (3.29-11.43)
[2023-12-29 11:50] LABS: HCG, Serum Qual Negative (Negative)
[2023-12-29 11:52] LABS: Alanine Aminotransferase 13 U/L (0-33); Albumin Level 3.8 g/dL (3.5-5.2); Alkaline Phosphatase 80 U/L (35-105); Anion Gap 11.3 (5-19); Aspartate Amino Transferase 14 U/L (0-32); Blood Urea Nitrogen 9 mg/dL (6-20); Calcium 9.4 mg/dL (8.5-10.5); Carbon Dioxide 22 mmol/L (22-29); Chloride 106 mmol/L (98-107); Globulin 3.2 g/dL (1.3-4.6); Glomerular Filtration Rate 188.5 mL/min (90-130); Glucose 99 mg/dL (65-115); Osmolality Calculated 279 mOsm/kg (285-295); Potassium 4.3 mmol/L (3.5-5.1); Sodium 135 mmol/L (136-145); Total Bilirubin 0.2 mg/dL (0.15-1.2)
[2023-12-29 11:53] LABS: Acetaminophen < 5.0 ug/mL (10-30); Alcohol Level < 10 mg/dL (0-10); Salicylate < 0.3 mg/dL (3-10)
[2023-12-29 11:54] LABS: Amphetamines Screen Urine Negative (Negative); Barbiturates Screen Urine Negative (Negative); Benzodiazepines Screen Urine Negative (Negative); Cocaine Screen Urine Negative (Negative); Opiate Screen Urine Negative (Negative); PCP Screen Urine Negative (Negative); THC Screen Urine Negative (Negative)
[2023-12-29 12:14] LABS: Lithium 1.3 mmol/L (0.6-1.2)
[2023-12-29 13:42] VITALS: BP 143/83; PULSE 83; RESP 16; TEMP 36.5; O2SAT 96
[2023-12-29 14:00] VITALS: BP 134/79; PULSE 71; RESP 16; TEMP 36.5; O2SAT 96
[2023-12-29] MEDS: propranolol 20 mg Tablet 10 MG PO ×2 (15:01→20:06)
[2023-12-29] MEDS: cetirizine 10 mg Tablet PO (18:07)
[2023-12-29] MEDS: divalproex DR 500 mg Tablet 1000 MG PO (18:08)
[2023-12-29] MEDS: quetiapine 100 mg Tablet 200 MG PO (18:08)
[2023-12-29] MEDS: docusate sodium 100 mg Capsule PO (18:08)
--- NOTE | 2023-12-29 18:40 | PC.NURSE ---
Room check completed with no contraband recovered.
[2023-12-29 19:29] LABS: Lithium 0.9 mmol/L (0.6-1.2)
[2023-12-29 19:40] VITALS: BP 123/72; PULSE 81; RESP 18; TEMP 37; O2SAT 98
[2023-12-29] MEDS: lithium carbonate 300 mg Capsule 600 MG PO (20:06)
[2023-12-30 06:00] VITALS: BP 118/73; PULSE 76; RESP 14; TEMP 36.9; O2SAT 98
[2023-12-30] MEDS: lithium carbonate 300 mg Capsule 600 MG PO ×2 (09:08→21:50)
[2023-12-30] MEDS: docusate sodium 100 mg Capsule PO ×2 (09:08→21:51)
[2023-12-30] MEDS: fluoxetine 20 mg Capsule 40 MG PO (09:08)
[2023-12-30] MEDS: propranolol 20 mg Tablet 10 MG PO ×3 (09:08→21:52)
[2023-12-30] MEDS: divalproex DR 500 mg Tablet PO (09:08)
[2023-12-30] MEDS: levothyroxine 150 mcg Tablet PO (09:09)
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
[2023-12-30] MEDS: fluoxetine 20 mg Capsule PO (12:41)
[2023-12-30 14:00] VITALS: BP 135/88; PULSE 81; RESP 16; TEMP 36.8; O2SAT 99
[2023-12-30 19:44] VITALS: BP 123/82; PULSE 84; RESP 18; TEMP 36.6; O2SAT 98
[2023-12-30] MEDS: quetiapine 100 mg Tablet 200 MG PO (21:50)
[2023-12-30] MEDS: divalproex DR 500 mg Tablet 1000 MG PO (21:50)
[2023-12-30] MEDS: hyDROXYzine 25 mg Capsule 50 MG PO (21:50)
[2023-12-30] MEDS: cetirizine 10 mg Tablet PO (21:51)
[2023-12-30] MEDS: trazodone 50 mg Tablet PO (21:52)
[2023-12-31 06:00] VITALS: BP 105/67; PULSE 70; RESP 15; TEMP 36.5; O2SAT 99
[2023-12-31] MEDS: levothyroxine 150 mcg Tablet PO (08:12)
[2023-12-31] MEDS: fluoxetine 20 mg Capsule 60 MG PO (08:12)
[2023-12-31] MEDS: docusate sodium 100 mg Capsule PO ×2 (08:12→17:39)
[2023-12-31] MEDS: lithium carbonate 300 mg Capsule 600 MG PO ×2 (08:12→17:39)
[2023-12-31] MEDS: divalproex DR 500 mg Tablet PO (08:18)
[2023-12-31] MEDS: propranolol 20 mg Tablet 10 MG PO ×3 (08:18→20:25)
[2023-12-31] MEDS: nicotine 2 mg Gum BUCCAL (11:10)
--- NOTE | 2023-12-31 13:13 | W.PM.NPUPNS ---
Subjective NPU Subjective: Patient presents today reporting that things are going okay. She continues to be fairly despondent per staff compared to past hospitalizations. She denies any problems thus far with the increase in her Prozac. We discussed the purpose of the increase including the possibility of a small decrease in her libido. She appeared to avoid conversations about troubling or embarrassing topics. She continues to seem to like being at the hospital compared to her [facility] for possible reasons of socialization versus access to food given how strong the drive that is for her. She denied any side effects to the medications. Mental Status Exam MSE Comments: This is an obese, -[place] female, in hospital scrubs with limited grooming, and eye contact. No abnormal movements except for mild psychomotor retardation. Cooperative with exam in no acute distress. Speech was decreased rate and volume and childlike. Mood described as fine: Affect slightly subdued. Thought process, linear. Thought content: patient denied any suicidal or homicidal ideation, there were no delusions reported or noted. Patient denied any auditory or visual hallucinations. Attention and concentration appeared intact and memory appears limited but mostly reliable but were not formally tested. She is alert and oriented to person and place. Insight and judgment are limited. Impulse control is limited versus impaired. Intellectual ability is impaired. Vitals/I&O/Wt Last Vital Signs Temp 97.7 F 12/31/23 06:00 Pulse 70 12/31/23 06:00 Resp 15 12/31/23 06:00 BP 105/67 12/31/23 06:00 Pulse Ox 99 12/31/23 06:00 O2 Del Method Room Air 12/31/23 06:00 Data NPU 12/29/23 11:22 12/29/23 11:22 A&P Assessment and plan (1) ADHD (attention deficit hyperactivity disorder): (2) Homicidal ideations: (3) Hypothyroid: Qualifiers: Hypothyroidism type: other Qualified Code(s): E03.8 - Other specified hypothyroidism (4) Intermittent explosive disorder in adult: (5) Mood disorder due to known physiological condition, unspecified: (6) Mild intellectual disability: (7) Nocturnal enuresis: (8) Oral contraceptive use: Plan Patient is a 23-year-old -[place] female with a history of intellectual disability likely mild and intermittent explosive disorder living in a assisted who presents again with depression and suicidal ideation with history of aggression and poor impulse control. She each of the last episodes have been triggered by lack of access to food. 1.? Continue current medications. Increased Prozac to 60 mg daily. 2.? Encourage individual, group and milieu therapy 3.? Continue q-15 minute check for safety 4. Speak with guardian for collateral information. 5. We will work with the [facility] on discharge plan. Might recommend GLP-1 like Ozempic to help reduce food craving versus may be Vyvanse for binge eating disorder. Involuntary Hold Information 96 Hour Hold: 96 Hour Involuntary Admission: No Attestations NPU Medical Necessity Statement*: Inpatient hospitalization is medically necessary and the clinically appropriate intervention, at this time. We will monitor medications and make changes as indicated. Her likely length of stay is 1-3 days. Coding Level of Care Code Acute Code for Chg Fwd Diagnoses ADHD (attention deficit hyperactivity disorder) F90.9 Homicidal ideations R45.850 Other specified hypothyroidism E03.8 Hypothyroidism type: other Intermittent explosive disorder in adult F63.81 Mood disorder due to known physiological condition, unspecified F06.30 Mild intellectual disability F70 Nocturnal enuresis N39.44 Oral contraceptive use Z30.41
[2023-12-31 14:00] VITALS: BP 123/72; PULSE 79; RESP 14; TEMP 36.6; O2SAT 98
[2023-12-31 19:49] VITALS: BP 122/71; PULSE 68; RESP 18; TEMP 36.4; O2SAT 98
[2023-12-31] MEDS: quetiapine 100 mg Tablet 200 MG PO (20:25)
[2023-12-31] MEDS: divalproex DR 500 mg Tablet 1000 MG PO (20:25)
[2024-01-01 06:00] VITALS: BP 94/55; PULSE 78; RESP 16; TEMP 36.7; O2SAT 97
[2024-01-01] MEDS: docusate sodium 100 mg Capsule PO ×2 (07:25→17:39)
[2024-01-01] MEDS: levothyroxine 150 mcg Tablet PO (07:25)
[2024-01-01] MEDS: propranolol 20 mg Tablet 10 MG PO ×3 (07:26→20:40)
[2024-01-01] MEDS: lithium carbonate 300 mg Capsule 600 MG PO ×2 (07:26→17:39)
[2024-01-01] MEDS: divalproex DR 500 mg Tablet PO (07:26)
[2024-01-01] MEDS: fluoxetine 20 mg Capsule 60 MG PO (07:26)
[2024-01-01 09:03] VITALS: BP 100/59; PULSE 77; RESP 14; TEMP 36.3; O2SAT 98
[2024-01-01 12:30] VITALS: BP 139/84; PULSE 77; RESP 16; TEMP 36.4; O2SAT 100
--- NOTE | 2024-01-01 15:33 | P.NPUPN_ITS ---
Subjective NPU 2 Subjective: Patient presented today reporting that she is doing okay. We discussed working with her people at the [facility] for a discharge plan for Thursday morning. We discussed possibly increasing her Prozac again but making sure she gets to her appointment on Thursday with her outpatient doctor to possibly discuss use of GLP- 1 medication. Otherwise she denied any side effects to the medication. Mental Status Exam 2 MSE Comments: This is an obese, -[place] female, in hospital scrubs with limited grooming, and eye contact. No abnormal movements except for mild psychomotor retardation. Cooperative with exam in no acute distress. Speech was decreased rate and volume and childlike. Mood described as fine: Affect slightly subdued. Thought process, linear. Thought content: patient denied any suicidal or homicidal ideation, there were no delusions reported or noted. Patient denied any auditory or visual hallucinations. Attention and concentration appeared intact and memory appears limited but mostly reliable but were not formally tested. She is alert and oriented to person and place. Insight and judgment are limited. Impulse control is limited versus impaired. Intellectual ability is impaired. Vitals/I&O/Wt Last Vital Signs Temp 97.6 F 01/01/24 12:30 Pulse 77 01/01/24 12:30 Resp 16 01/01/24 12:30 BP 139/84 01/01/24 12:30 Pulse Ox 100 01/01/24 12:30 O2 Del Method Room Air 01/01/24 12:30 01/01/24 01/01/24 01/01/24 06:59 14:59 22:59 Intake Total 240 / 240 Balance 240 / 240 Data NPU 12/29/23 11:22 12/29/23 11:22 A&P Assessment and plan (1) ADHD (attention deficit hyperactivity disorder): (2) Homicidal ideations: (3) Hypothyroid: Qualifiers: Hypothyroidism type: other Qualified Code(s): E03.8 - Other specified hypothyroidism (4) Intermittent explosive disorder in adult: (5) Mood disorder due to known physiological condition, unspecified: (6) Mild intellectual disability: (7) Nocturnal enuresis: (8) Oral contraceptive use: Plan Patient is a 23-year-old -[place] female with a history of intellectual disability likely mild and intermittent explosive disorder living in a [facility] who presents again with depression and suicidal ideation with history of aggression and poor impulse control. She each of the last episodes have been triggered by lack of access to food. 1.? Continue current medications. Increased Prozac to 60 mg daily. 2.? Encourage individual, group and milieu therapy 3.? Continue q-15 minute check for safety 4. Speak with guardian for collateral information. 5. We will work with the [facility] on discharge plan. Might recommend GLP-1 like Ozempic to help reduce food craving versus may be Vyvanse for binge eating disorder. Involuntary Hold Information 2 96 Hour Hold: 96 Hour Involuntary Admission: No Attestations NPU 2 Medical Necessity Statement*: Inpatient hospitalization is medically necessary and the clinically appropriate intervention, at this time. We will monitor medications and make changes as indicated. Her likely length of stay is 3 days. Coding Level of Care Code Acute Code for Chg Fwd Diagnoses ADHD (attention deficit hyperactivity disorder) F90.9 Homicidal ideations R45.850 Other specified hypothyroidism E03.8 Hypothyroidism type: other Intermittent explosive disorder in adult F63.81 Mood disorder due to known physiological condition, unspecified F06.30 Mild intellectual disability F70 Nocturnal enuresis N39.44 Oral contraceptive use Z30.41
--- NOTE | 2024-01-01 15:34 | PC.NURSE ---
This tech answered a phone called from Isha Hernandez, a field nurse case manager. She stated that, [facility] called and she is not supposed to have any contact with her mother. So Sylvia called her mother, and the mother called the guardian. The guardian is upset since Sylvia is acting up. They do not want her calling her mother because she is being told, [by the mother], that if she kills a staff member, then she can go to penitentiary with her brother.
[2024-01-01 20:14] VITALS: BP 125/81; PULSE 79; RESP 17; TEMP 36.5; O2SAT 96
[2024-01-01] MEDS: quetiapine 100 mg Tablet 200 MG PO (20:40)
[2024-01-01] MEDS: divalproex DR 500 mg Tablet 1000 MG PO (20:40)
[2024-01-01] MEDS: cetirizine 10 mg Tablet PO (20:40)
[2024-01-02 06:00] VITALS: BP 125/67; PULSE 70; RESP 15; O2SAT 97
[2024-01-02] MEDS: fluoxetine 20 mg Capsule 60 MG PO (08:59)
[2024-01-02] MEDS: lithium carbonate 300 mg Capsule 600 MG PO ×2 (08:59→17:39)
[2024-01-02] MEDS: levothyroxine 150 mcg Tablet PO (09:00)
[2024-01-02] MEDS: divalproex DR 500 mg Tablet PO (09:00)
[2024-01-02] MEDS: propranolol 20 mg Tablet 10 MG PO ×3 (09:00→20:17)
[2024-01-02] MEDS: docusate sodium 100 mg Capsule PO ×2 (09:00→17:39)
--- NOTE | 2024-01-02 12:23 | P.NPUPN_ITS ---
Subjective NPU 2 Subjective: Patient presented today reporting he is doing okay. She continues to be somewhat isolative per staff report and direct observation. She reports that she is doing fine with the increase in the Prozac. We discussed her discharge on Thursday and her going to her PCP appointment and asked reaching out to them about the possibility of considering medications that might focus on her food obsessive behavior. She denies any side effects of the medication. Mental Status Exam 2 MSE Comments: This is an obese, -Congolese female, in hospital scrubs with limited grooming, and eye contact. No abnormal movements except for mild psychomotor retardation. Cooperative with exam in no acute distress. Speech was decreased rate and volume and childlike. Mood described as fine: Affect slightly subdued. Thought process, linear. Thought content: patient denied any suicidal or homicidal ideation, there were no delusions reported or noted. Patient denied any auditory or visual hallucinations. Attention and concentration appeared intact and memory appears limited but mostly reliable but were not formally tested. She is alert and oriented to person and place. Insight and judgment are limited. Impulse control is limited versus impaired. Intellectual ability is impaired. Vitals/I&O/Wt Last Vital Signs Temp 97.7 F 01/01/24 20:14 Pulse 70 01/02/24 06:00 Resp 15 01/02/24 06:00 BP 125/67 01/02/24 06:00 Pulse Ox 97 01/02/24 06:00 O2 Del Method Room Air 01/02/24 06:00 01/01/24 01/02/24 01/02/24 22:59 06:59 14:59 Intake Total 480 / 720 240 / 240 Balance 480 / 720 240 / 240 Data NPU 12/29/23 11:22 12/29/23 11:22 A&P Assessment and plan (1) ADHD (attention deficit hyperactivity disorder): (2) Homicidal ideations: (3) Hypothyroid: Qualifiers: Hypothyroidism type: other Qualified Code(s): E03.8 - Other specified hypothyroidism (4) Intermittent explosive disorder in adult: (5) Mood disorder due to known physiological condition, unspecified: (6) Mild intellectual disability: (7) Nocturnal enuresis: (8) Oral contraceptive use: Plan Patient is a 23-year-old -Congol[place] female with a history of intellectual disability likely mild and intermittent explosive disorder living in a [facility] who presents again with depression and suicidal ideation with history of aggression and poor impulse control. She each of the last episodes have been triggered by lack of access to food. 1.? Continue current medications. Increased Prozac to 60 mg daily. 2.? Encourage individual, group and milieu therapy 3.? Continue q-15 minute check for safety 4. Speak with guardian for collateral information. 5. We will work with the [facility] on discharge plan. Might recommend GLP-1 like Ozempic to help reduce food craving versus may be Vyvanse for binge eating disorder. Involuntary Hold Information 2 96 Hour Hold: 96 Hour Involuntary Admission: No Attestations NPU 2 Medical Necessity Statement*: Inpatient hospitalization is medically necessary and the clinically appropriate intervention, at this time. We will monitor medications and make changes as indicated. Her likely length of stay is 2 days. Coding Level of Care Code Acute Code for Chg Fwd Diagnoses ADHD (attention deficit hyperactivity disorder) F90.9 Homicidal ideations R45.850 Other specified hypothyroidism E03.8 Hypothyroidism type: other Intermittent explosive disorder in adult F63.81 Mood disorder due to known physiological condition, unspecified F06.30 Mild intellectual disability F70 Nocturnal enuresis N39.44 Oral contraceptive use Z30.41
[2024-01-02 13:33] VITALS: BP 102/68; PULSE 84; RESP 18; TEMP 36.8; O2SAT 99
[2024-01-02] MEDS: divalproex DR 500 mg Tablet 1000 MG PO (20:17)
[2024-01-02] MEDS: quetiapine 100 mg Tablet 200 MG PO (20:17)
[2024-01-02] MEDS: cetirizine 10 mg Tablet PO (20:17)
[2024-01-02 20:24] VITALS: BP 118/74; PULSE 77; RESP 18; TEMP 36.8; O2SAT 98
[2024-01-03 06:00] VITALS: BP 110/53; PULSE 70; RESP 16; TEMP 36.6; O2SAT 100
--- NOTE | 2024-01-03 08:16 | W.PM.NPUPNS ---
Subjective NPU Subjective: Patient presented today reporting that she is doing okay and feeling better. She endorsed that she is accepting of the plan of discharge tomorrow morning and open to the idea of this commercial insurance underwriter talking to her PCP about the use of something like Ozempic or Wegovy to try to manage her food obsessive behaviors. Otherwise she denied any other issues and denied any side effects of the medication. Mental Status Exam MSE Comments: This is an obese, -[place] female, in hospital scrubs with limited grooming, and eye contact. No abnormal movements except for mild psychomotor retardation. Cooperative with exam in no acute distress. Speech was decreased rate and volume and childlike. Mood described as fine: Affect slightly subdued. Thought process, linear. Thought content: patient denied any suicidal or homicidal ideation, there were no delusions reported or noted. Patient denied any auditory or visual hallucinations. Attention and concentration appeared intact and memory appears limited but mostly reliable but were not formally tested. She is alert and oriented to person and place. Insight and judgment are limited. Impulse control is limited versus impaired. Intellectual ability is impaired. Vitals/I&O/Wt Last Vital Signs Temp 97.8 F 01/03/24 06:00 Pulse 70 01/03/24 06:00 Resp 16 01/03/24 06:00 BP 110/53 01/03/24 06:00 Pulse Ox 100 01/03/24 06:00 O2 Del Method Room Air 01/03/24 06:00 Weight last 48 hrs Weight 104.326 kg Data NPU 12/29/23 11:22 12/29/23 11:22 A&P Assessment and plan (1) ADHD (attention deficit hyperactivity disorder): (2) Homicidal ideations: (3) Hypothyroid: Qualifiers: Hypothyroidism type: other Qualified Code(s): E03.8 - Other specified hypothyroidism (4) Intermittent explosive disorder in adult: (5) Mood disorder due to known physiological condition, unspecified: (6) Mild intellectual disability: (7) Nocturnal enuresis: (8) Oral contraceptive use: Plan Patient is a 23-year-old -[place] female with a history of intellectual disability likely mild and intermittent explosive disorder living in a custodial who presents again with depression and suicidal ideation with history of aggression and poor impulse control. She each of the last episodes have been triggered by lack of access to food. 1.? Continue current medications. Increased Prozac to 60 mg daily. 2.? Encourage individual, group and milieu therapy 3.? Continue q-15 minute check for safety 4. Speak with guardian for collateral information. 5. We will work with the [facility] on discharge plan. Might recommend GLP-1 like Ozempic to help reduce food craving versus may be Vyvanse for binge eating disorder. Involuntary Hold Information 96 Hour Hold: 96 Hour Involuntary Admission: No Attestations NPU Medical Necessity Statement*: Inpatient hospitalization is medically necessary and the clinically appropriate intervention, at this time. We will monitor medications and make changes as indicated. Her likely length of stay is 1 day. Coding Level of Care Code Acute Code for Chg Fwd Diagnoses ADHD (attention deficit hyperactivity disorder) F90.9 Homicidal ideations R45.850 Other specified hypothyroidism E03.8 Hypothyroidism type: other Intermittent explosive disorder in adult F63.81 Mood disorder due to known physiological condition, unspecified F06.30 Mild intellectual disability F70 Nocturnal enuresis N39.44 Oral contraceptive use Z30.41
[2024-01-03] MEDS: fluoxetine 20 mg Capsule 60 MG PO (09:14)
[2024-01-03] MEDS: propranolol 20 mg Tablet 10 MG PO ×3 (09:14→20:58)
[2024-01-03] MEDS: docusate sodium 100 mg Capsule PO ×2 (09:14→17:12)
[2024-01-03] MEDS: divalproex DR 500 mg Tablet PO (09:14)
[2024-01-03] MEDS: lithium carbonate 300 mg Capsule 600 MG PO ×2 (09:14→17:12)
[2024-01-03] MEDS: levothyroxine 150 mcg Tablet PO (09:14)
[2024-01-03 14:00] VITALS: BP 136/91; PULSE 78; RESP 20; TEMP 36.4; O2SAT 98
[2024-01-03 20:35] VITALS: BP 116/64; PULSE 70; RESP 18; TEMP 37.1; O2SAT 99
[2024-01-03] MEDS: cetirizine 10 mg Tablet PO (20:58)
[2024-01-03] MEDS: divalproex DR 500 mg Tablet 1000 MG PO (20:58)
[2024-01-03] MEDS: quetiapine 100 mg Tablet 200 MG PO (20:59)
[2024-01-04 06:00] VITALS: BP 129/80; PULSE 79; RESP 16; O2SAT 98
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
[2024-01-04] MEDS: lithium carbonate 300 mg Capsule 600 MG PO (07:41)
[2024-01-04] MEDS: levothyroxine 150 mcg Tablet PO (07:41)
[2024-01-04] MEDS: divalproex DR 500 mg Tablet PO (07:41)
[2024-01-04] MEDS: propranolol 20 mg Tablet 10 MG PO (07:42)
[2024-01-04] MEDS: docusate sodium 100 mg Capsule PO (07:42)
[2024-01-04] MEDS: fluoxetine 20 mg Capsule 60 MG PO (07:42)
[2024-01-04 07:55] VITALS: BP 129/80; PULSE 79; RESP 16; O2SAT 98
--- NOTE | 2024-01-04 08:30 | DCPLANNER ---
IMM was printed and Guardian Jarvis Shah was called with verbal and copy placed in chart.
== END 2024-01-04 08:19 | disposition home or self-care (01) | DRG 884 ==
LOC: ER 11:21 → NP 12:47
PROVIDERS: Admitting Provider Psychiatry & Neurology Psychiatry; Emergency Provider Physician Assistant; PCP Nurse Practitioner; Visit Provider Psychiatry & Neurology Psychiatry
DX: F06.30 Mood disorder due to known physiological condition, unspecified (principal); R45.851 Suicidal ideations; F90.9 Attention-deficit hyperactivity disorder, unspecified type; E03.9 Hypothyroidism, unspecified; R45.850 Homicidal ideations; F63.81 Intermittent explosive disorder; F70 Mild intellectual disabilities; N39.44 Nocturnal enuresis; F32.A Depression, unspecified
CPT/HCPCS: 36415; 80053; 80178; 80306; 80307; 84703; 85025; 97150; 97165; 99285

== ENCOUNTER 2024-02-16 18:16 | Emergency (ER) | payer MEDICAID, SELFPAY ==
[2024-02-16 18:37] VITALS: BP 137/75; PULSE 82; RESP 18; TEMP 36.5; O2SAT 97
--- NOTE | 2024-02-16 18:59 | W.ED.PSYCHS ---
Documented by User: TESS Olivo 02/16/24 21:49 HPI - Psych General: Chief Complaint: Psychiatric Symptoms Stated Complaint: MHE Time Seen by Provider: 02/16/24 18:30 Source: patient Mode of arrival: ambulatory Limitations: no limitations History of Present Illness: Patient is a 23-year-old female brought in by EMS for mental health evaluation today. Per patient, staff at her penitentiary called the police due to her trying to break hours with a metal bar as well as throwing rocks. I asked patient why she did this, she states because she wanted to go to [facility] to be with her brother. She currently is not endorsing any suicidal or homicidal ideations. She does note that she has been hospitalized in a psychiatric facility in the past, for self-harm. She denies any changes in her medication recently. No other symptoms reported at this time, and when I asked patient how she is feeling she states good. I spoke with staff at patient's penitentiary, who states that patient was attacking a goat, smashing windows, and required being tased to be subdued. They called the teacher [employer], who subsequently called ambulance to bring patient in for mental evaluation. They state that they cannot have the patient discharged back home because of this. I also spoke with patient's legal guardian, who states he will make some calls around to see where the patient can be discharged to. He calls back sometime later and states that they want the patient transferred to [place]. complaint: other (Mental health evaluation) History of same: Yes Associated symptoms: Deny auditory hallucinations, visual hallucinations, homicidal ideation or suicidal ideation Review of Systems General: Reports: 10 or more systems reviewed and unremarkable except in HPI and below Const: Denies: fever(s), chills or fatigue Eyes: Denies: change in vision ENMT: Denies: throat pain, ear or mastoid pain or nasal discharge Card: Denies: chest pain, palpitations, swelling of feet/ankles or lightheadedness Resp: Denies: dyspnea, productive cough or wheezing GI: Denies: abdominal pain, nausea, vomiting, diarrhea or constipation : Denies: flank pain, difficulty voiding, dysuria or urinary frequency Musc: Denies: neck pain, back pain or joint pain Skin/Breast: Denies: rash Neuro: Denies: headache(s), numbness in extremities or weakness in extremities Psych: Reports: other (Mental health evaluation); Denies: visual hallucinations, auditory hallucinations, suicidal ideation or homicidal ideation PFSH ED PFSH: Medical History Nocturnal enuresis Hypothyroid Mood disorder due to known physiological condition, unspecified Intermittent explosive disorder Mild intellectual disabilities On Depo-Provera for contraception Environmental and seasonal allergies ADHD (attention deficit hyperactivity disorder) Surgical History No history of previous surgery Family History Father Cancer Mother Diabetes Hypertension Denies family history of Stroke Social History Smoking and tobacco/nicotine status: never used tobacco/nicotine Second hand smoke exposure: No Alcohol intake: never Substance/Drug Use: never Adopted: No Caregiver/support person: Yes Lives independently: No Household members: caregiver Housing: House Marital status: Single Number of children: 0 Highest education level completed: High School Graduate service: No Current occupational status: disabled Pets and animals: Yes Pets & animal details: Chickens Current gender identity: Female Physical Exam Const: COMMON NORMALS: no acute distress, patient oriented x3 and no limitations GENERAL APPEARANCE: cooperative, comfortable, well developed and disheveled ORIENTATION/CONSCIOUSNESS: Yes awake, Yes oriented to person, Yes oriented to place and Yes oriented to time HENMT: COMMON NORMALS: normocephalic, atraumatic and hearing grossly normal bilaterally HEAD & SCALP: normocephalic and atraumatic Eye: COMMON NORMALS: Equal, round and reactive pupils present, EOMs intact bilaterally and conjunctivae normal CONJUNCTIVA: Yes conjunctivae normal PUPIL: Yes Equal, round and reactive pupils present Neck/C-Spine: COMMON NORMALS: full ROM, supple and no JVD Resp: COMMON NORMALS: normal respiratory effort, No retractions, No use of accessory muscles and clear to auscultation bilaterally AUSCULTATION: clear to auscultation bilaterally Cardio: COMMON NORMALS: no JVD, regular rate, regular rhythm, No clicks present (Cardio), No murmurs present (Cardio) and No rub (Cardio) RATE: regular rate RHYTHM: regular rhythm Extremity: COMMON NORMALS: normal to inspection, full ROM and capillary refill normal Neuro: COMMON NORMALS: patient oriented x3, CN's II-XII intact bilaterally, moves all extremities, no focal motor deficits and no sensory deficits noted SENSORIUM/ORIENTATION: Yes oriented to person, Yes oriented to place and Yes oriented to time Psych: COMMON NORMALS: mental status grossly normal and Normal thought process present THOUGHT PROCESS: Normal thought process present THOUGHT CONTENT: No Suicidality present, No Homicidality present and No Hallucination(s) present Skin: COMMON NORMALS: no rashes or lesions noted GENERAL SKIN EXAM: no rashes or lesions noted Course Vital Signs: Vital signs: Vital Signs Temperature 97.7 F 02/16/24 18:37 Pulse Rate 82 02/16/24 21:53 Respiratory Rate 18 02/16/24 21:53 Blood Pressure 127/86 02/16/24 21:53 Pulse Oximetry 98 02/16/24 21:53 Oxygen Delivery Me thod Room Air 02/16/24 18:37 MDM - Psych Medical Decision Making Patient brought in by EMS due to aggressive behavior at her [facility]iary. Upon questioning the patient, she states she was maliciously trying to get thrown in the [facility] so that she would be placed in a intermediate that her brother is at. She did not report any suicidal or homicidal ideations at that time, and was not endorsing any hallucinations. Vitals normal and her lab workup for potential transfer was all unremarkable. I first spoke with patient's penitentiary, who states that patient cannot come back due to her violent behavior. I then spoke to patient's guardian, Jarvis Baldwinuitt, who had said that he will try to contact other facilities. Then spoke with on-call psychiatrist, Dr. Goldstein, who states that due to patient not being suicidal or homicidal and her history of aggressive behavior, she would not be a candidate for admission at this time. Also spoke with Dr. Rodríguez, psychiatrist, who has seen the patient before and also agrees that this would not be a situation where she would need admitted. Reportedly, staff at [facility] stated that they wanted patient transferred to [place], and also said that Jarvis Shah was in agreement on this. I spoke with staff member at the facility, who became very aggressive and hung up the phone in the middle of conversation, specifically when talking about patient being discharged back to her place of living. This incident will be filed accordingly. I spoke with Jarvis Shah again who states he is still in contact with other facilities, however this can take up to 30 days. Staff members from patient's independent living facility show up and states they will take the patient home. Patient will be discharged back to facility at this time. Lab Data 02/16/24 19:16 02/16/24 19:16 Laboratory Results WBC 9.75 10^3/uL (3.29-11.43) 02/16/24 19:16 RBC 3.90 10^6/uL (3.85-5.65) 02/16/24 19:16 Hgb 11.80 g/dL (11.27-16.99) 02/16/24 19:16 Hct 37.8 % (36-47) 02/16/24 19:16 MCV 96.9 fl (85-98) 02/16/24 19:16 MCH 30.3 pg (27-33) 02/16/24 19:16 MCHC 31.2 g/dL (30-55) 02/16/24 19:16 RDW 13.8 % (12.1-15.1) 02/16/24 19:16 Plt Count 219 10^3/cmm (157-399) 02/16/24 19:16 MPV 10.4 fL (7.4-10.4) 02/16/24 19:16 Neut % (Auto) 54.5 % 02/16/24 19:16 Lymph % (Auto) 35.2 % 02/16/24 19:16 [place] % (Auto) 7.4 % 02/16/24 19:16 Eos % (Auto) 1.9 % 02/16/24 19:16 Baso % (Auto) 0.3 % 02/16/24 19:16 Neut # (Auto) 5.31 10^3/uL (1.8-7.7) 02/16/24 19:16 Lymph # (Auto) 3.4 10^3/uL (0.8-4.8) 02/16/24 19:16 [place] # (Auto) 0.7 10^3/uL (0.2-0.9) 02/16/24 19:16 Eos # (Auto) 0.2 10^3/uL (0.0-0.8) 02/16/24 19:16 Baso # (Auto) 0.0 10^3/uL (0.0-0.1) 02/16/24 19:16 Nucleated RBC % (auto) 0 % 02/16/24 19:16 Nucleated RBCs # 0.0 /100WBC 02/16/24 19:16 Sodium 136 mmol/L (136-145) 02/16/24 19:16 Potassium 4.2 mmol/L (3.5-5.1) 02/16/24 19:16 Chloride 105 mmol/L (98-107) 02/16/24 19:16 Carbon Dioxide 19 mmol/L (22-29) L 02/16/24 19:16 Anion Gap 16.2 (5-19) 02/16/24 19:16 BUN 11 mg/dL (6-20) 02/16/24 19:16 Creatinine 0.7 mg/dL (0.5-0.9) 02/16/24 19:16 GFR Calculation 127.8 mL/min (90-130) 02/16/24 19:16 Glucose 130 mg/dL (65-115) H 02/16/24 19:16 Calculated Osmolality 283 mOsm/kg (285-295) L 02/16/24 19:16 Calcium 10.2 mg/dL (8.5-10.5) 02/16/24 19:16 Total Bilirubin 0.2 mg/dL (0.15-1.2) 02/16/24 19:16 AST 11 U/L (0-32) 02/16/24 19:16 ALT 10 U/L (0-33) 02/16/24 19:16 Alkaline Phosphatase 79 U/L (35-105) 02/16/24 19:16 Total Protein 7.7 g/dL (6.6-8.7) 02/16/24 19:16 Albumin 4.2 g/dL (3.5-5.2) 02/16/24 19:16 Globulin 3.5 g/dL (1.3-4.6) 02/16/24 19:16 TSH 0.57 uIU/mL (0.27-4.20) 02/16/24 19:16 HCG, Qual Negative (Negative) 02/16/24 19:16 Urine Color Yellow (Yellow) 02/16/24 20:18 Urine Appearance Clear (CLEAR) 02/16/24 20:18 Urine pH 6 (5-7) 02/16/24 20:18 Ur Specific [place] 1.015 (1.005-1.030) 02/16/24 20:18 Urine Protein Neg (Negative) 02/16/24 20:18 Urine Glucose (UA) Norm (Normal) 02/16/24 20:18 Urine Ketones 1+ (Negative) H 02/16/24 20:18 Urine Blood Neg (Negative) 02/16/24 20:18 Urine Nitrate Negative (Negative) 02/16/24 20:18 Urine Bilirubin Neg (Negative) 02/16/24 20:18 Urine Urobilinogen Norm mg/dL (Negative) 02/16/24 20:18 Ur Leukocyte Esterase Negative (Negative) 02/16/24 20:18 Salicylates < 0.3 mg/dL (3-10) L 02/16/24 19:16 Urine Opiates Screen Negative ng/mL (Negative) 02/16/24 20:18 Acetaminophen < 5.0 ug/mL (10-30) L 02/16/24 19:16 Ur Barbiturates Screen Negative ng/mL (Negative) 02/16/24 20:18 Ur Phencyclidine Scrn Negative ng/mL (Negative) 02/16/24 20:18 Ur Amphetamines Screen Negative ng/mL (Negative) 02/16/24 20:18 U Benzodiazepines Scrn Negative ng/mL (Negative) 02/16/24 20:18 Urine Cocaine Screen Negative ng/mL (Negative) 02/16/24 20:18 U Marijuana (THC) Screen Negative ng/mL (Negative) 02/16/24 20:18 Ethyl Alcohol < 10 mg/dL (0-10) 02/16/24 19:16 Influenza Type A Ag negative (Negative) 02/16/24 20:18 Influenza Type B Ag negative (Negative) 02/16/24 20:18 SARS-CoV-2 Ag (Rapid) negative (Negative) 02/16/24 20:18 No radiology studies performed this visit Discharge Plan Discharge Patient Disposition: Home Clinical Impression: Behavior concern Condition: Stable Prescriptions: No Action desmopressin 0.2 mg tablet 0.2 mg PO BEDTIME@19 Qty: 30 5RF desog-e.estradiol/e.estradiol 0.15-0.02 mgx21 /0.01 mg x 5 tablet 1 tab PO DAILY Qty: 28 5RF Vascepa 1 gram capsule 2 g PO BID@07,19 Qty: 120 5RF levothyroxine 150 mcg tablet 150 mcg PO DAILY@07 Qty: 30 5RF mupirocin 2 % ointment 1 applic topical BID Qty: 22 0RF Rx Instructions: apply for 21 days then stop acetaminophen 500 mg tablet 1,000 mg PO Q6H PRN (Reason: Pain) Qty: 30 5RF ibuprofen 200 mg tablet 200 mg PO Q6H PRN (Reason: Pain) Qty: 30 5RF cetirizine 10 mg tablet 10 mg PO DAILY@19 Qty: 30 5RF Colace 100 mg capsule 100 mg PO BID@07,19 Qty: 60 5RF lithium carbonate 300 mg tablet 600 mg PO BID@, propranolol 10 mg tablet 10 mg PO TID divalproex 500 mg tablet extended release 24 hr See Rx Instructions .ROUTE .COMPLEX Rx Instructions: 500mg (1 tab) po in the am@07 and 1000mg (2 tabs) po qpm fluoxetine 20 mg Capsule 60 mg PO DAILY 30 Days Qty: 90 1RF Discharge Orders: Discharge ED (Routine); Ordered 02/16/24 Ordered By: Reyes Florez Referrals: Raciel Astudillo, YAW [Primary Care Provider] - Discharge Diet: Usual diet Discharge Activity: Resume usual activity Patient Instructions: Pain Management Activity Restrictions/Additional Instructions: Continue medications as prescribed. Follow-up with your primary care provider. Return with any new or worsening. Coding Level of Care Code ED Bumper Machine Operator for Chg Fwd Documented by User: Ralf Arias DO 02/24/24 21:20 HPI - Psych General: Chief Complaint: Psychiatric Symptoms Stated Complaint: MHE Time Seen by Provider: 02/16/24 18:30 [facility] ED PFSH: Medical History Nocturnal enuresis Hypothyroid Mood disorder due to known physiological condition, unspecified Intermittent explosive disorder Mild intellectual disabilities On Depo-Provera for contraception Environmental and seasonal allergies ADHD (attention deficit hyperactivity disorder) Surgical History No history of previous surgery Family History Father Cancer Mother Diabetes Hypertension Denies family history of Stroke Social History Smoking and tobacco/nicotine status: never used tobacco/nicotine Second hand smoke exposure: No Alcohol intake: never Substance/Drug Use: never Adopted: No Caregiver/support person: Yes Lives independently: No Household members: caregiver Housing: House Marital status: Single Number of children: 0 Highest education level completed: High School Graduate service: No Current occupational status: disabled Pets and animals: Yes Pets & animal details: Chickens Current gender identity: Female Course Vital Signs: Vital signs: Vital Signs Temperature 97.7 F 02/16/24 18:37 Pulse Rate 82 02/16/24 21:53 Respiratory Rate 18 02/16/24 21:53 Blood Pressure 127/86 02/16/24 21:53 Pulse Oximetry 98 02/16/24 21:53 Oxygen Delivery Me thod Room Air 02/16/24 18:37 MDM - Psych Medical Decision Making Patient brought in by EMS due to aggressive behavior at her [facility]. Upon questioning the patient, she states she was maliciously trying to get thrown in the [facility] so that she would be placed in a intermediate that her brother is at. She did not report any suicidal or homicidal ideations at that time, and was not endorsing any hallucinations. Vitals normal and her lab workup for potential transfer was all unremarkable. I first spoke with patient's penitentiary, who states that patient cannot come back due to her violent behavior. I then spoke to patient's guardian, Jarvis Shah, who had said that he will try to contact other facilities. Then spoke with on-call psychiatrist, Dr. Goldstein, who states that due to patient not being suicidal or homicidal and her history of aggressive behavior, she would not be a candidate for admission at this time. Also spoke with Dr. Rodríguez, psychiatrist, who has seen the patient before and also agrees that this would not be a situation where she would need admitted. Reportedly, staff at [facility] stated that they wanted patient transferred to [place], and also said that Jarvis Shah was in agreement on this. I spoke with staff member at the facility, who became very aggressive and hung up the phone in the middle of conversation, specifically when talking about patient being discharged back to her place of living. This incident will be filed accordingly. I spoke with Jarvis Shah again who states he is still in contact with other facilities, however this can take up to 30 days. Staff members from patient's independent living facility show up and states they will take the patient home. Patient will be discharged back to facility at this time. Chart reviewed Lab Data 02/16/24 19:16 02/16/24 19:16 Laboratory Results WBC 9.75 10^3/uL (3.29-11.43) 02/16/24 19:16 RBC 3.90 10^6/uL (3.85-5.65) 02/16/24 19:16 Hgb 11.80 g/dL (11.27-16.99) 02/16/24 19:16 Hct 37.8 % (36-47) 02/16/24 19:16 MCV 96.9 fl (85-98) 02/16/24 19:16 MCH 30.3 pg (27-33) 02/16/24 19:16 MCHC 31.2 g/dL (30-55) 02/16/24 19:16 RDW 13.8 % (12.1-15.1) 02/16/24 19:16 Plt Count 219 10^3/cmm (157-399) 02/16/24 19:16 MPV 10.4 fL (7.4-10.4) 02/16/24 19:16 Neut % (Auto) 54.5 % 02/16/24 19:16 Lymph % (Auto) 35.2 % 02/16/24 19:16 [place] % (Auto) 7.4 % 02/16/24 19:16 Eos % (Auto) 1.9 % 02/16/24 19:16 Baso % (Auto) 0.3 % 02/16/24 19:16 Neut # (Auto) 5.31 10^3/uL (1.8-7.7) 02/16/24 19:16 Lymph # (Auto) 3.4 10^3/uL (0.8-4.8) 02/16/24 19:16 [place] # (Auto) 0.7 10^3/uL (0.2-0.9) 02/16/24 19:16 Eos # (Auto) 0.2 10^3/uL (0.0-0.8) 02/16/24 19:16 Baso # (Auto) 0.0 10^3/uL (0.0-0.1) 02/16/24 19:16 Nucleated RBC % (auto) 0 % 02/16/24 19:16 Nucleated RBCs # 0.0 /100WBC 02/16/24 19:16 Sodium 136 mmol/L (136-145) 02/16/24 19:16 Potassium 4.2 mmol/L (3.5-5.1) 02/16/24 19:16 Chloride 105 mmol/L (98-107) 02/16/24 19:16 Carbon Dioxide 19 mmol/L (22-29) L 02/16/24 19:16 Anion Gap 16.2 (5-19) 02/16/24 19:16 BUN 11 mg/dL (6-20) 02/16/24 19:16 Creatinine 0.7 mg/dL (0.5-0.9) 02/16/24 19:16 GFR Calculation 127.8 mL/min (90-130) 02/16/24 19:16 Glucose 130 mg/dL (65-115) H 02/16/24 19:16 Calculated Osmolality 283 mOsm/kg (285-295) L 02/16/24 19:16 Calcium 10.2 mg/dL (8.5-10.5) 02/16/24 19:16 Total Bilirubin 0.2 mg/dL (0.15-1.2) 02/16/24 19:16 AST 11 U/L (0-32) 02/16/24 19:16 ALT 10 U/L (0-33) 02/16/24 19:16 Alkaline Phosphatase 79 U/L (35-105) 02/16/24 19:16 Total Protein 7.7 g/dL (6.6-8.7) 02/16/24 19:16 Albumin 4.2 g/dL (3.5-5.2) 02/16/24 19:16 Globulin 3.5 g/dL (1.3-4.6) 02/16/24 19:16 TSH 0.57 uIU/mL (0.27-4.20) 02/16/24 19:16 HCG, Qual Negative (Negative) 02/16/24 19:16 Urine Color Yellow (Yellow) 02/16/24 20:18 Urine Appearance Clear (CLEAR) 02/16/24 20:18 Urine pH 6 (5-7) 02/16/24 20:18 Ur Specific [place] 1.015 (1.005-1.030) 02/16/24 20:18 Urine Protein Neg (Negative) 02/16/24 20:18 Urine Glucose (UA) Norm (Normal) 02/16/24 20:18 Urine Ketones 1+ (Negative) H 02/16/24 20:18 Urine Blood Neg (Negative) 02/16/24 20:18 Urine Nitrate Negative (Negative) 02/16/24 20:18 Urine Bilirubin Neg (Negative) 02/16/24 20:18 Urine Urobilinogen Norm mg/dL (Negative) 02/16/24 20:18 Ur Leukocyte Esterase Negative (Negative) 02/16/24 20:18 Salicylates < 0.3 mg/dL (3-10) L 02/16/24 19:16 Urine Opiates Screen Negative ng/mL (Negative) 02/16/24 20:18 Acetaminophen < 5.0 ug/mL (10-30) L 02/16/24 19:16 Ur Barbiturates Screen Negative ng/mL (Negative) 02/16/24 20:18 Ur Phencyclidine Scrn Negative ng/mL (Negative) 02/16/24 20:18 Ur Amphetamines Screen Negative ng/mL (Negative) 02/16/24 20:18 U Benzodiazepines Scrn Negative ng/mL (Negative) 02/16/24 20:18 Urine Cocaine Screen Negative ng/mL (Negative) 02/16/24 20:18 U Marijuana (THC) Screen Negative ng/mL (Negative) 02/16/24 20:18 Ethyl Alcohol < 10 mg/dL (0-10) 02/16/24 19:16 Influenza Type A Ag negative (Negative) 02/16/24 20:18 Influenza Type B Ag negative (Negative) 02/16/24 20:18 SARS-CoV-2 Ag (Rapid) negative (Negative) 02/16/24 20:18 Discharge Plan Discharge Patient Disposition: Home Clinical Impression: Behavior concern Condition: Stable Prescriptions: No Action desmopressin 0.2 mg tablet 0.2 mg PO BEDTIME@19 Qty: 30 5RF desog-e.estradiol/e.estradiol 0.15-0.02 mgx21 /0.01 mg x 5 tablet 1 tab PO DAILY Qty: 28 5RF Vascepa 1 gram capsule 2 g PO BID@,19 Qty: 120 5RF levothyroxine 150 mcg tablet 150 mcg PO DAILY@07 Qty: 30 5RF mupirocin 2 % ointment 1 applic topical BID Qty: 22 0RF Rx Instructions: apply for 21 days then stop acetaminophen 500 mg tablet 1,000 mg PO Q6H PRN (Reason: Pain) Qty: 30 5RF ibuprofen 200 mg tablet 200 mg PO Q6H PRN (Reason: Pain) Qty: 30 5RF cetirizine 10 mg tablet 10 mg PO DAILY@19 Qty: 30 5RF Colace 100 mg capsule 100 mg PO BID@, Qty: 60 5RF lithium carbonate 300 mg tablet 600 mg PO BID@, propranolol 10 mg tablet 10 mg PO TID divalproex 500 mg tablet extended release 24 hr See Rx Instructions .ROUTE .COMPLEX Rx Instructions: 500mg (1 tab) po in the am@07 and 1000mg (2 tabs) po qpm fluoxetine 20 mg Capsule 60 mg PO DAILY 30 Days Qty: 90 1RF Discharge Orders: Discharge ED (Routine); Ordered 02/16/24 Ordered By: Reyes Florez Referrals: Raciel Astudillo, [employer] [Primary Care Provider] - Discharge Diet: Usual diet Discharge Activity: Resume usual activity Patient Instructions: Pain Management Activity Restrictions/Additional Instructions: Continue medications as prescribed. Follow-up with your primary care provider. Return with any new or worsening. Coding Level of Care Code ED Bumper Machine Operator for Rebeca Jaeger
--- NOTE | 2024-02-16 19:08 | ECG_ITS ---
[facility] Test Date: 2024-02-16 Pat Name: Sylvia Lagos Department: Room: Gender: Female Tooling Manager: : 2000 Requested By: Reyes Dasilva Order Number: [id number] Quiroz MD: John Valle M.D. Measurements Intervals Datil Rate: 74 P: 40 MT: 185 QRS: 30 QRSD: 84 T: 0 QT: 298 QTc: 331 Interpretive Statements SUPRAVENTRICULAR RHYTHM. Baseline artifact NONSPECIFIC T-WAVE ABNORMALITY Compared to ECG 09/18/2016 18:39:20 T-wave abnormality now present Electronically Signed On 02-17-2024 10:34:03 CDT by John Valle M.D. [email or web address]
[2024-02-16 19:25] LABS: Basophils % 0.3 %; Eosinophils # 0.2 10^3/uL (0.0-0.8); Eosinophils % 1.9 %; Hematocrit 37.8 % (36-47); Lymphocytes # 3.4 10^3/uL (0.8-4.8); Lymphocytes % 35.2 %; Mean Corpuscular HGB Conc 31.2 g/dL (30-55); Mean Corpuscular Hemoglobin 30.3 pg (27-33); Mean Corpuscular Volume 96.9 fl (85-98); Mean Platelet Volume 10.4 fL (7.4-10.4); Monocytes # 0.7 10^3/uL (0.2-0.9); Monocytes % 7.4 %; Neutrophils # 5.31 10^3/uL (1.8-7.7); Neutrophils % 54.5 %; Nucleated Red Blood Cells % 0 %; Platelet Count 219 10^3/cmm (157-399); Red Cell Distribution Width 13.8 % (12.1-15.1); White Blood Count 9.75 10^3/uL (3.29-11.43)
[2024-02-16 19:39] LABS: Alanine Aminotransferase 10 U/L (0-33); Albumin Level 4.2 g/dL (3.5-5.2); Alkaline Phosphatase 79 U/L (35-105); Anion Gap 16.2 (5-19); Aspartate Amino Transferase 11 U/L (0-32); Blood Urea Nitrogen 11 mg/dL (6-20); Calcium 10.2 mg/dL (8.5-10.5); Carbon Dioxide 19 mmol/L (22-29); Chloride 105 mmol/L (98-107); Creatinine Clr Calc Pharmacy 144.0793; Globulin 3.5 g/dL (1.3-4.6); Glomerular Filtration Rate 127.8 mL/min (90-130); Glucose 130 mg/dL (65-115); Osmolality Calculated 283 mOsm/kg (285-295); Potassium 4.2 mmol/L (3.5-5.1); Sodium 136 mmol/L (136-145); Total Bilirubin 0.2 mg/dL (0.15-1.2); Total Protein 7.7 g/dL (6.6-8.7)
[2024-02-16 19:42] LABS: Acetaminophen < 5.0 ug/mL (10-30); Alcohol Level < 10 mg/dL (0-10); Salicylate < 0.3 mg/dL (3-10)
[2024-02-16 19:49] LABS: HCG, Serum Qual Negative (Negative)
[2024-02-16 20:03] LABS: Thyroid Stimulating Hormone 0.57 uIU/mL (0.27-4.20)
[2024-02-16 20:24] LABS: Add Urine Microscopic? NO; Charge for UA Resulting for Rev
[2024-02-16 20:35] LABS: Amphetamines Screen Urine Negative (Negative); Barbiturates Screen Urine Negative (Negative); Benzodiazepines Screen Urine Negative (Negative); Cocaine Screen Urine Negative (Negative); Opiate Screen Urine Negative (Negative); PCP Screen Urine Negative (Negative); THC Screen Urine Negative (Negative)
[2024-02-16 20:40] LABS: Bilirubin Urine Neg (Negative); Blood Urine Neg (Negative); Glucose Urine UA Norm (Normal); Ketones Urine 1+ (Negative); Leukocyte Esterase Urine Negative (Negative); Nitrate Urine Negative (Negative); Protein Urine Neg (Negative); Specific Gravity, Urine 1.015 (1.005-1.030); Urine Appearance Clear (CLEAR); Urine Color Yellow (Yellow); Urobilinogen Urine Norm (Negative); pH Urine 6 (5-7)
[2024-02-16 20:42] LABS: Influenza A by IFA negative (Negative); Influenza B by IFA negative (Negative); SARS Covid-2 Antigen negative (Negative)
[2024-02-16 21:53] VITALS: BP 127/86; PULSE 82; RESP 18; O2SAT 98
== END 2024-02-16 21:57 | disposition home or self-care (01) ==
PROVIDERS: Emergency Provider Physician Assistant; PCP Nurse Practitioner
DX: R46.89 Other symptoms and signs involving appearance and behavior (principal); Z11.52 Encounter for screening for COVID-19
CPT/HCPCS: 36415; 80053; 80306; 80307; 81003; 84443; 84703; 85025; 87426; 87804; 93005; 99284

== ENCOUNTER 2024-03-12 15:12 | Inpatient (IN) | payer MEDICARE, MEDICAID, SELFPAY ==
[2024-03-12 15:14] VITALS: BP 143/62; PULSE 75; RESP 18; TEMP 36.6; O2SAT 97; BMI 33.9
[2024-03-12 15:23] VITALS: BP 143/62; PULSE 75; RESP 18; TEMP 36.6; O2SAT 97
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
[2024-03-12 15:51] LABS: HCG Qualitative Urine. Negative (Negative)
--- NOTE | 2024-03-12 15:54 | PC.NURSE ---
Talked with guardian, Jarvis Coy, at 1553. He stated medical staff could perform any necessary medical changes and administer any care needed per doctor's orders during her stay.
[2024-03-12 16:17] LABS: Basophils % 0.3 %; Eosinophils # 0.2 10^3/uL (0.0-0.8); Eosinophils % 1.9 %; Hematocrit 37.9 % (36-47); Lymphocytes # 3.6 10^3/uL (0.8-4.8); Mean Corpuscular HGB Conc 31.4 g/dL (30-55); Mean Corpuscular Hemoglobin 30.5 pg (27-33); Mean Corpuscular Volume 97.2 fl (85-98); Mean Platelet Volume 10.4 fL (7.4-10.4); Monocytes # 0.7 10^3/uL (0.2-0.9); Monocytes % 7.5 %; Neutrophils # 4.69 10^3/uL (1.8-7.7); Neutrophils % 50.8 %; Nucleated Red Blood Cells % 0 %; Platelet Count 215 10^3/cmm (157-399); Red Cell Distribution Width 13.5 % (12.1-15.1); White Blood Count 9.25 10^3/uL (3.29-11.43)
[2024-03-12 16:35] LABS: Alanine Aminotransferase 7 U/L (0-33); Albumin Level 3.8 g/dL (3.5-5.2); Alkaline Phosphatase 69 U/L (35-105); Anion Gap 12.9 (5-19); Aspartate Amino Transferase 11 U/L (0-32); Blood Urea Nitrogen 13 mg/dL (6-20); Calcium 9.6 mg/dL (8.5-10.5); Carbon Dioxide 22 mmol/L (22-29); Chloride 103 mmol/L (98-107); Creatinine Clr Calc Pharmacy 172.5207; Globulin 3.4 g/dL (1.3-4.6); Glomerular Filtration Rate 152.7 mL/min (90-130); Glucose 100 mg/dL (65-115); Osmolality Calculated 278 mOsm/kg (285-295); Potassium 3.9 mmol/L (3.5-5.1); Sodium 134 mmol/L (136-145); Total Bilirubin 0.2 mg/dL (0.15-1.2); Total Protein 7.2 g/dL (6.6-8.7)
[2024-03-12 16:40] LABS: Amphetamines Screen Urine Negative (Negative); Barbiturates Screen Urine Negative (Negative); Benzodiazepines Screen Urine Negative (Negative); Cocaine Screen Urine Negative (Negative); Opiate Screen Urine Negative (Negative); PCP Screen Urine Negative (Negative); THC Screen Urine Negative (Negative)
[2024-03-12 16:40] LABS: Acetaminophen < 5.0 ug/mL (10-30); Alcohol Level < 10 mg/dL (0-10); Salicylate < 0.3 mg/dL (3-10)
[2024-03-12 17:41] VITALS: BP 130/71; PULSE 73; RESP 16; TEMP 36.6; O2SAT 100
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
[2024-03-12 21:45] VITALS: BP 123/60; PULSE 73; RESP 18; TEMP 37; O2SAT 96
[2024-03-13 06:00] VITALS: BP 124/65; PULSE 84; RESP 17; TEMP 36.7; O2SAT 97
--- NOTE | 2024-03-13 09:21 | PC.NURSE ---
This RN attempted to call Damari, a caregiver from patient's halfway, to obtain med list for patient. Damari called this RN back and gave the following medications and directions to RN: cetirizine 10mg tab 1qd desmopressin 0.2mg tab 1hs divalproex ER 500mg tab 1 tab @ 0700 and 2 tabs hs docusate sodium 100mg 1bid levothyroxine 150 mcg tab 1 tab at 0800 lithium 600mg bid paroxetine 20mg bid propranolol 10mg @ 0800,1200, and 2000 quetiapine fumarate 200mg hs quetiapine fumarate 50mg at 0800, 1200, and 2000 icosapent 2gm bid This list was relayed to Dr. Gaytan, who then asked this RN to put in orders for each of them as listed.
[2024-03-13] MEDS: propranolol 20 mg Tablet 10 MG PO ×3 (10:01→20:48)
[2024-03-13] MEDS: lithium carbonate 300 mg Capsule 600 MG PO ×2 (10:01→18:22)
[2024-03-13] MEDS: divalproex ER 500 mg Tablet (24H) PO (10:01)
[2024-03-13] MEDS: levothyroxine 150 mcg Tablet PO (10:01)
[2024-03-13] MEDS: quetiapine 25 mg Tablet 50 MG PO ×3 (10:01→21:18)
[2024-03-13] MEDS: docusate sodium 100 mg Capsule PO ×2 (10:01→18:22)
[2024-03-13] MEDS: PARoxetine 20 mg Tablet PO ×2 (10:02→18:22)
[2024-03-13] MEDS: cetirizine 10 mg Tablet PO (10:02)
--- NOTE | 2024-03-13 12:14 | PC.NURSE ---
This RN woke patient from a nap and she looked as if she was panicked and began shaking. When asked if she was okay the patient said she was having a nightmare. Patient then proceeded to the dayroom to eat lunch and appears to be calm now.
[2024-03-13 13:04] LABS: Glucose Point of Care 117 mg/dL (70-110)
--- NOTE | 2024-03-13 13:10 | PC.NURSE ---
Patient reported feeling funny and requested her blood sugar and blood pressure be taken. Glucose was 117 and vital signs were as follows: temp of 97.7, HR 79, RR 17, BP 116/70, and O2 of 98.
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
[2024-03-13 14:00] VITALS: BP 116/70; PULSE 79; RESP 17; TEMP 36.5; O2SAT 98
[2024-03-13] MEDS: quetiapine 100 mg Tablet 200 MG PO (20:46)
[2024-03-13] MEDS: divalproex ER 500 mg Tablet (24H) 1000 MG PO (20:46)
[2024-03-13] MEDS: omega-3 fatty acids 1,000 mg Capsule 2000 MG PO (20:48)
[2024-03-13 21:56] VITALS: BP 125/78; PULSE 75; RESP 18; TEMP 36.9; O2SAT 99
[2024-03-14 06:00] VITALS: BP 125/76; PULSE 76; RESP 16; TEMP 37; O2SAT 98
[2024-03-14] MEDS: cetirizine 10 mg Tablet PO (08:18)
[2024-03-14] MEDS: quetiapine 25 mg Tablet 50 MG PO ×3 (08:18→20:12)
[2024-03-14] MEDS: lithium carbonate 300 mg Capsule 600 MG PO ×2 (08:18→18:01)
[2024-03-14] MEDS: PARoxetine 20 mg Tablet PO ×2 (08:18→18:01)
[2024-03-14] MEDS: divalproex ER 500 mg Tablet (24H) PO (08:19)
[2024-03-14] MEDS: omega-3 fatty acids 1,000 mg Capsule 2000 MG PO ×2 (08:19→18:01)
[2024-03-14] MEDS: levothyroxine 150 mcg Tablet PO (08:19)
[2024-03-14] MEDS: propranolol 20 mg Tablet 10 MG PO ×3 (08:19→20:12)
[2024-03-14] MEDS: docusate sodium 100 mg Capsule PO ×2 (08:19→18:01)
[2024-03-14 14:00] VITALS: BP 131/85; PULSE 82; RESP 20; TEMP 37.3; O2SAT 98
--- NOTE | 2024-03-14 18:09 | P.NPUPN_ITS ---
Subjective NPU 2 Subjective: 23-year-old -[place] female with a history of intermittent explosive disorder, and mild to moderate cognitive impairment admitted with homicidal threats towards the staff at her residential treatment facility. She had no acts of aggression on the unit. She had acknowledged that she had struggled with problems with feeling hungry and reported that she had been upset over not able to obtain a candy bar leading ultimately to significant destruction of property and a significant aggressive outburst. She reported no side effects from her medications. She was compliant with her medications on the milieu. She had reported having no suicidal thoughts today. Mental Status Exam 2 MSE Comments: This is an obese, -[place] female, in hospital scrubs with limited grooming, and fleeting eye contact. No abnormal movements except for mild psychomotor retardation. She was cooperative with exam in no acute distress. Speech was decreased in rate and volume and childlike. Mood described as allright. Her affect was slightly subdued. Thought process was linear but superficial. Thought content: patient denied any suicidal or homicidal ideation today although she had acknowledged making homicidal threats to her staff. There were no delusions reported or noted. Patient denied any auditory or visual hallucinations. Attention and concentration appeared intact and memory appears limited but mostly reliable but were not formally tested. She is alert and oriented to person and place. Insight and judgment are limited. Impulse control is impaired. Intellectual ability is commensurate with mild to moderate cognitive impairment. Vitals/I&O/Wt Last Vital Signs Temp 99.1 F 03/14/24 14:00 Pulse 82 03/14/24 14:00 Resp 20 H 03/14/24 14:00 BP 131/85 03/14/24 14:00 Pulse Ox 98 03/14/24 14:00 O2 Del Method Room Air 03/14/24 06:00 Weight last 48 hrs Weight 101.718 kg Data NPU 03/12/24 16:10 03/12/24 16:10 A&P Assessment and plan (1) Intermittent explosive disorder in adult: (2) ADHD (attention deficit hyperactivity disorder): (3) Homicidal ideations: (4) Hypothyroid: Qualifiers: Hypothyroidism type: other Qualified Code(s): E03.8 - Other specified hypothyroidism (5) Mood disorder due to known physiological condition, unspecified: (6) Mild intellectual disability: (7) Nocturnal enuresis: (8) Oral contraceptive use: Plan Patient is a 23-year-old -[place] female with a history of intellectual disability likely mild and intermittent explosive disorder living in a long-term who presents again with depression and homicidal ideation with history of aggression and poor impulse control. She each of the last episodes have been triggered by lack of access to food. 1. Continue outpatient medications as prescribed. ? 2.? Encourage individual, group and milieu therapy 3.? Continue q-15 minute check for safety 4. Speak with guardian for collateral information. 5. We will work with the [facility] on discharge plan. Consider Vyvanse to target binge eating issues, may need to call this medication in to outpatient pharmacy as it is not on formulary. [facility] has given 30 day notice and does not wish to have patient return there again. Patient has legal guardian. Involuntary Hold Information 2 96 Hour Hold: 96 Hour Involuntary Admission: No Attestations NPU 2 Medical Necessity Statement*: Inpatient hospitalization is medically necessary and the clinically appropriate intervention, at this time. We will monitor medications and make changes as indicated. Her likely length of stay is 2-4 days. Coding Level of Care Code Acute Code for Chg Fwd Diagnoses Intermittent explosive disorder in adult F63.81 ADHD (attention deficit hyperactivity disorder) F90.9 Homicidal ideations R45.850 Other specified hypothyroidism E03.8 Hypothyroidism type: other Mood disorder due to known physiological condition, unspecified F06.30 Mild intellectual disability F70 Nocturnal enuresis N39.44 Oral contraceptive use Z30.41
[2024-03-14] MEDS: divalproex ER 500 mg Tablet (24H) 1000 MG PO (20:11)
[2024-03-14] MEDS: quetiapine 100 mg Tablet 200 MG PO (20:12)
[2024-03-14 22:00] VITALS: BP 117/77; PULSE 80; RESP 18; TEMP 37.1; O2SAT 98
[2024-03-15 06:00] VITALS: BP 136/75; PULSE 81; RESP 16; TEMP 36.8; O2SAT 99
[2024-03-15] MEDS: omega-3 fatty acids 1,000 mg Capsule 2000 MG PO ×2 (07:59→17:55)
[2024-03-15] MEDS: lithium carbonate 300 mg Capsule 600 MG PO ×2 (07:59→17:55)
[2024-03-15] MEDS: levothyroxine 150 mcg Tablet PO (08:00)
[2024-03-15] MEDS: PARoxetine 20 mg Tablet PO ×2 (08:00→17:55)
[2024-03-15] MEDS: propranolol 20 mg Tablet 10 MG PO ×3 (08:00→20:37)
[2024-03-15] MEDS: docusate sodium 100 mg Capsule PO ×2 (08:00→17:55)
[2024-03-15] MEDS: divalproex ER 500 mg Tablet (24H) PO (08:00)
[2024-03-15] MEDS: quetiapine 25 mg Tablet 50 MG PO ×3 (08:00→20:37)
[2024-03-15] MEDS: cetirizine 10 mg Tablet PO (08:00)
--- NOTE | 2024-03-15 08:06 | PC.NURSE ---
Patient denies anxiety, depression, suicidal ideation, homicidal ideation, and auditory/visual hallucinations. Patient fixated on when next meal will arrive.
[2024-03-15 14:00] VITALS: BP 129/77; PULSE 78; RESP 20; TEMP 36.9; O2SAT 98
--- NOTE | 2024-03-15 16:07 | W.PM.NPUPNS ---
Subjective NPU Subjective: 23-year-old -[place] female with a history of intermittent explosive disorder, and mild to moderate cognitive impairment admitted with homicidal threats towards the staff at her residential treatment facility. She reported no side effects from her medication. There was no aggression that appeared to be associated with her appetite. She was redirectable on the milieu. She had stated that she felt that she may be ready to go home tomorrow back to the [facility] facility. She had reported adequate sleep. Mental Status Exam MSE Comments: This is an obese, -[place] female, in hospital scrubs with limited grooming, and poor eye contact. No abnormal movements except for mild psychomotor retardation. She was cooperative with exam in no acute distress. Speech was decreased in rate and volume and childlike. Mood described as okay. Her affect was slightly subdued. Thought process was linear but superficial. Thought content: patient denied any suicidal or homicidal ideation today although she had acknowledged making homicidal threats to her staff. There were no delusions reported or noted. Patient denied any auditory or visual hallucinations. Attention and concentration appeared intact and memory appears limited but mostly reliable but were not formally tested. She is alert and oriented to person and place. Insight and judgment are limited. Impulse control is impaired. Intellectual ability is commensurate with mild to moderate cognitive impairment. Vitals/I&O/Wt Last Vital Signs Temp 98.4 F 03/15/24 14:00 Pulse 78 03/15/24 14:00 Resp 20 H 03/15/24 14:00 BP 129/77 03/15/24 14:00 Pulse Ox 98 03/15/24 14:00 O2 Del Method Room Air 03/15/24 14:00 Data NPU 03/12/24 16:10 03/12/24 16:10 A&P Assessment and plan (1) Intermittent explosive disorder in adult: (2) ADHD (attention deficit hyperactivity disorder): (3) Homicidal ideations: (4) Hypothyroid: Qualifiers: Hypothyroidism type: other Qualified Code(s): E03.8 - Other specified hypothyroidism (5) Mood disorder due to known physiological condition, unspecified: (6) Mild intellectual disability: (7) Nocturnal enuresis: (8) Oral contraceptive use: Plan Patient is a 23-year-old -[place] female with a history of intellectual disability likely mild and intermittent explosive disorder living in a [facility] who presents again with depression and homicidal ideation with history of aggression and poor impulse control. She each of the last episodes have been triggered by lack of access to food. 1. Continue outpatient medications as prescribed. ? 2.? Encourage individual, group and milieu therapy 3.? Continue q-15 minute check for safety 4. Speak with guardian for collateral information. 5. We will work with the [facility] on discharge plan. Consider Vyvanse to target binge eating issues, may need to call this medication in to outpatient pharmacy as it is not on formulary. [facility] has given 30 day notice and does not wish to have patient return there again but patient will be discharged there tommorow. Involuntary Hold Information 96 Hour Hold: 96 Hour Involuntary Admission: No Attestations NPU Medical Necessity Statement*: Inpatient hospitalization is medically necessary and the clinically appropriate intervention, at this time. We will monitor medications and make changes as indicated. Her likely length of stay is 1-2 days. Coding Level of Care Code Acute Code for Chg Fwd Diagnoses Intermittent explosive disorder in adult F63.81 ADHD (attention deficit hyperactivity disorder) F90.9 Homicidal ideations R45.850 Other specified hypothyroidism E03.8 Hypothyroidism type: other Mood disorder due to known physiological condition, unspecified F06.30 Mild intellectual disability F70 Nocturnal enuresis N39.44 Oral contraceptive use Z30.41
[2024-03-15] MEDS: quetiapine 100 mg Tablet 200 MG PO (20:36)
[2024-03-15] MEDS: divalproex ER 500 mg Tablet (24H) 1000 MG PO (20:36)
[2024-03-15 21:29] VITALS: BP 131/80; PULSE 75; RESP 14; O2SAT 98
[2024-03-16 06:00] VITALS: BP 136/79; PULSE 66; RESP 15; O2SAT 98
[2024-03-16] MEDS: omega-3 fatty acids 1,000 mg Capsule 2000 MG PO (07:46)
[2024-03-16] MEDS: lithium carbonate 300 mg Capsule 600 MG PO (07:46)
[2024-03-16] MEDS: docusate sodium 100 mg Capsule PO (07:46)
[2024-03-16] MEDS: levothyroxine 150 mcg Tablet PO (07:46)
[2024-03-16] MEDS: propranolol 20 mg Tablet 10 MG PO ×2 (07:46→15:06)
[2024-03-16] MEDS: divalproex ER 500 mg Tablet (24H) PO (07:47)
[2024-03-16] MEDS: cetirizine 10 mg Tablet PO (07:47)
[2024-03-16] MEDS: quetiapine 25 mg Tablet 50 MG PO ×2 (07:47→15:06)
[2024-03-16] MEDS: PARoxetine 20 mg Tablet PO (07:47)
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
[2024-03-16 08:36] VITALS: BP 136/79; PULSE 66; RESP 15; O2SAT 98
--- NOTE | 2024-03-16 11:51 | DCPLANNER ---
Imm was faxed to Jarvis Ayala and copy placed in pts file.
[2024-03-16 14:00] VITALS: BP 122/68; PULSE 82; RESP 17; TEMP 36.8; O2SAT 98
== END 2024-03-16 16:16 | disposition home or self-care (01) | DRG 883 ==
LOC: ER 15:35 → NP 15:46
PROVIDERS: Admitting Provider Psychiatry & Neurology Psychiatry; Emergency Provider Emergency Medicine; PCP Nurse Practitioner; Visit Provider Psychiatry & Neurology Psychiatry
DX: F63.81 Intermittent explosive disorder (principal); F90.9 Attention-deficit hyperactivity disorder, unspecified type; R45.850 Homicidal ideations; E03.9 Hypothyroidism, unspecified; F39 Unspecified mood [affective] disorder; F70 Mild intellectual disabilities; N39.44 Nocturnal enuresis
CPT/HCPCS: 36415; 36416; 80053; 80306; 80307; 81025; 82962; 85025; 97150; 97165; 99285